=== PATIENT | female | born 1985 | race African-American/Black ===

== ENCOUNTER 2016-09-02 15:33 | Emergency (ER) | payer BC ==
[2016-09-02 15:42] VITALS: BP 115/64
[2016-09-02] MEDS ORDERED: Ibuprofen 800 MG Tab PO ONE (16:07)
--- NOTE | 2016-09-02 16:55 | EDM.PDOC ---
ED HPI GENERAL MEDICAL PROBLEM - General Chief Complaint: Head Injury Stated Complaint: SOMETHING WRONG WITH HEAD IN PAIN NOT HEADACHE Time Seen by Provider: 09/02/16 15:56 Source of Information: Reports: Patient History Limitations: Reports: No Limitations - History of Present Illness INITIAL COMMENTS - FREE TEXT/NARRATIVE: Patient is a 30-year-old female presents ED complaining of right-sided headache. States the headache has been intermittent for the past 4 months and of as of late the headache has been constant over the past 2 weeks. Described as a throbbing/sharp sensation with no precipitating factors. There is no hyperacusis, or photophobia, nausea/vomiting, recent head trauma, or provoking factors. Pain is mild to moderate in nature. She has not tried any over-the- counter pain medications. She has no history of migraines. Denies any numbness/ tingling, vision changes, weakness, fever/chills, or any additional complaints. Left Head Pain Score (Numeric/FACES): 9 - Related Data Allergies Allergy/AdvReac Type Severity Reaction Status Date / Time No Known Allergies Allergy Verified 08/04/13 05:34 Home Meds: Home Meds . [No Known Home Meds] 09/02/16 [History] Past Medical History - Past Health History Medical/Surgical History: Denies Medical/Surgical History Social & Family History - Tobacco Use Smoking Status *Q: Never Smoker Second Hand Smoke Exposure: No - Caffeine Use Caffeine Use: Reports: Coffee, Energy Drinks, Soda, Tea - Alcohol Use Days Per Week of Alcohol Use: 0 - Recreational Drug Use Recreational Drug Use: No ED ROS GENERAL - Review of Systems Review Of Systems: See Below Constitutional: Denies: Fever, Chills, Malaise, Weakness, Decreased Appetite HEENT: Reports: No Symptoms Respiratory: Reports: No Symptoms Cardiovascular: Reports: No Symptoms GI/Abdominal: Reports: No Symptoms Musculoskeletal: Denies: Neck Pain, Back Pain Neurological: Reports: Headache. Denies: Confusion, Dizziness, Numbness, Syncope, Tingling, Difficulty Walking ED EXAM, HEAD INJURY - Physical Exam Exam: See Below Exam Limited By: No Limitations General Appearance: Alert, WD/WN, No Apparent Distress Head: Atraumatic, Normocephalic, Scalp Tenderness (LEft parietal: Worsen with palpation. No deformity, bruising, swelling, rash, or wounds present.) Nexus Criteria: No: Posterior, Midline Cervical Tenderness, Evidence of Intoxication, Altered Level of Consciousness, Focal Neurological Deficit, Painful Distraction Injuries Eyes: Bilateral Eye: EOMI, PERRL Ears: Normal External Exam, Normal Canal, Hearing Grossly Normal, Normal TMs Nose: Normal Inspection, Normal Mucousa, No Blood Throat/Mouth: Normal Inspection, Normal Oropharynx, Normal Voice, No Airway Compromise Neck: Non-Tender, Full Range of Motion, Normal Alignment, Normal Inspection Respiratory: No Respiratory Distress, Lungs Clear, Normal Breath Sounds, No Accessory Muscle Use, Chest Non-Tender Cardiovascular: Normal Peripheral Pulses, Regular Rate, Rhythm GI/Abdominal Exam: Normal Bowel Sounds, Soft, Non-Tender, No Organomegaly, No Distention Back Exam: Normal Inspection, Full Range of Motion. 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 No pronator drift, upper extremity/lower extremity weakness,). No: Facial Droop Skin: Normal Color, Warm/Dry Course - Vital Signs Last Recorded V/S: Last Vital Signs Temp 98.3 F 09/02/16 15:41 Pulse 69 09/02/16 15:41 Resp 20 09/02/16 15:41 BP 115/64 09/02/16 15:41 Pulse Ox 97 09/02/16 15:41 - Orders/Labs/Meds Meds: Medications Discontinued Medications Generic Name Dose Route Start Last Admin Trade Name Margarito PRN Reason Stop Dose Admin Ibuprofen 800 mg 09/02/16 16:07 09/02/16 16:11 Motrin PO 09/02/16 16:08 800 mg ONETIME ONE Administration - Re-Assessments/Exams Free Text/Narrative Re-Assessment/Exam: Patient has not tried any ibuprofen or Tylenol for the headache has been present for almost 4 months. Pain is reproducible with palpation. Mild in nature. She does not appear to be in acute distress. Ordered ibuprofen 800 mg by mouth. Will not obtain imaging at this time. Headache is been going on for months with waxing and waning in intensity. She has not tried any [id number] modalities. Examination did not elicit any concerning findings. 1653 Patient's headache has resolved per nursing. Will discharge patient home with instructions as documented. 09/02/16 17:10 Upon discharge patient states head pain had not improved. Requesting CT of the Head. 09/02/16 18:24 CT of the head impression: No abnormality is appreciated on noncontrast head CT study. Departure - Departure Time of Disposition: 16:53 Disposition: Home, Self-Care 01 Condition: Good Clinical Impression: Head pain Qualifiers: Headache type: unspecified Headache chronicity pattern: unspecified pattern Intractability: not intractable Qualified Code(s): R51 - Headache - Discharge Information Instructions: Migraine Headache, [id number] Referrals: PCP,Evonne [Primary Care Provider] - Nolvia Snyder PA [Physician Mycologist] - Forms: ED Department Discharge Additional Instructions: Unclear cause of headache. This was relieved with taking ibuprofen 800 mg by mouth. Thus recommend taking ibuprofen 600 mg every 6 hours and Tylenol 650 mg every 6 hours in alternating fashion for pain. Push the fluids. Ensure adequate rest. Follow-up with primary care provider this coming week for reevaluation. Return to ED for any new or worsening symptoms.
--- NOTE | 2016-09-02 17:54 | CT ---
Head CT Technique: Multiple axial sections through the brain were obtained. Intravenous contrast was not utilized. Comparison: Previous head CT study of 08/16/12. Findings: Ventricles along with basal cisterns and sulci over the convexities are within normal limits for the patient's age. No abnormal parenchymal densities are seen. No evidence of intracranial hemorrhage. No midline shift or mass effect is seen. Bone window settings were reviewed which shows the visualized sinuses to appear clear. No acute calvarial abnormality is seen. Impression: 1. No abnormality is appreciated on noncontrast head CT study. Diagnostic code #1
== END 2016-09-02 18:30 | disposition home or self-care (01) ==
LOC: JD.ED 15:33
DX: R51 Headache (principal)
CPT/HCPCS: 70450; 99284; A9270; 99283

== ENCOUNTER 2019-03-30 10:16 | Emergency (ER) | payer BC, MEDICAID ==
[2019-03-30 10:42] VITALS: BP 100/35; PULSE 56
[2019-03-30] MEDS ORDERED: Albuterol/Ipratropium 3.0-0.5 MG/3 ML Neb Soln NEB ONE (13:31)
--- NOTE | 2019-03-30 13:33 | EDM.PDOC ---
ED HPI GENERAL MEDICAL PROBLEM - General Chief Complaint: Respiratory Problem Stated Complaint: DIFFICULTY BREATHING Time Seen by Provider: 03/30/19 13:20 Source of Information: Reports: Patient History Limitations: Reports: No Limitations - History of Present Illness INITIAL COMMENTS - FREE TEXT/NARRATIVE: Patient is a 33-year-old female who present with complaints of dyspnea at all times. She states that she has had problems off-and-on for the last couple years with intermittent dyspnea, however for the last 4 days she feels short of breath at all times. She states that it's worse at night awake her from sleep. She denies any cough or wheezing. Dyspnea is worse with any exertion. She denies any chronic lung problems. Has never been diagnosed with asthma or had pulmonary function testing done. Denies fever or chills. - Related Data Allergies Allergy/AdvReac Type Severity Reaction Status Date / Time No Known Allergies Allergy Verified 03/30/19 10:42 Home Meds: Home Meds methylPREDNISolone [Medrol Dose Pack] 4 mg PO ASDIRECTED #1 dospk 03/30/19 [Rx] Past Medical History - Past Health History Medical/Surgical History: Denies Medical/Surgical History Social & Family History - Tobacco Use Smoking Status *Q: Never Smoker - Caffeine Use Caffeine Use: Reports: Coffee - Recreational Drug Use Recreational Drug Use: No ED ROS GENERAL - Review of Systems Review Of Systems: Comprehensive ROS is negative, except as noted in HPI. ED EXAM, GENERAL - Physical Exam Exam: See Below Exam Limited By: No Limitations General Appearance: Alert, WD/WN, No Apparent Distress Respiratory/Chest: No Respiratory Distress, Lungs Clear, Normal Breath Sounds, No Accessory Muscle Use, Chest Non-Tender Cardiovascular: Normal Peripheral Pulses, Regular Rate, Rhythm, No Edema, No Gallop, No JVD, No Murmur, No Rub Neurological: Alert, Oriented, CN II-XII Intact, Normal Cognition, Normal Gait, Normal Reflexes, No Motor/Sensory Deficits Psychiatric: Normal Affect, Normal Mood Skin Exam: Warm, Dry, Intact, Normal Color, No Rash Course - Vital Signs Last Recorded V/S: Last Vital Signs Temp 98.9 F 03/30/19 10:40 Pulse 56 L 03/30/19 10:40 Resp 16 03/30/19 10:40 BP 100/35 L 03/30/19 10:40 Pulse Ox 97 03/30/19 16:43 - Orders/Labs/Meds Labs: Laboratory Tests 03/30/19 Range/Units 14:02 D-Dimer, Quantitative 1.15 H (0.19-0.50) mg/L Meds: Medications Discontinued Medications Generic Name Dose Route Start Last Admin Trade Name Margarito PRN Reason Stop Dose Admin Albuterol 0 gm 03/30/19 16:12 03/30/19 16:43 Proventil Hfa INH 03/30/19 16:13 2 puff Q4H ONE Administration Albuterol/Ipratropium 3 ml 03/30/19 13:31 03/30/19 13:43 Duoneb 3.0-0.5 Mg/3 Ml NEB 03/30/19 13:32 3 ml ONETIME ONE Administration Sodium Chloride 100 mls @ 60 mls/hr 03/30/19 15:30 Normal Saline IV ASDIRECTED PARUL Iopamidol 100 ml 03/30/19 15:28 03/30/19 15:42 Isovue-370 (76%) IVPUSH 03/30/19 15:29 100 ml ONETIME ONE Administration Sodium Chloride 10 ml 03/30/19 15:28 03/30/19 15:42 Saline Flush FLUSH 03/30/19 15:29 10 ml ONETIME ONE Administration - Re-Assessments/Exams Free Text/Narrative Re-Assessment/Exam: patient did verbalize some relief from the shortness of breath after the DuoNeb was given. I have ordered a d-dimer to rule out PE, however, don't feel that this is likely for her She is not tachycardic or hypoxic and she denies chest pain. She is not on control. 03/30/19 15:21 d-dimer did come back elevated at 1.15. I've ordered a CT angiogram of the chest. 03/30/19 16:11 CT angios of the chest was negative. Patient has had no pain swelling or redness in her lower extremities. We will discharge her home with a Medrol Dosepak as well as an albuterol inhaler to be used as needed for shortness of breath. I did recommend that she call to schedule appointment with Dr. Cabrera to have further testing done to either rule in or rule out a diagnosis o asthma. Discharge instructions as noted. Departure - Departure Time of Disposition: 16:13 Disposition: Home, Self-Care 01 Condition: Fair Clinical Impression: Dyspnea Qualifiers: Dyspnea type: shortness of breath Qualified Code(s): R06.02 - Shortness of breath - Discharge Information *PRESCRIPTION DRUG MONITORING PROGRAM REVIEWED*: No *COPY OF PRESCRIPTION DRUG MONITORING REPORT IN PATIENT SEBAS: No Prescriptions: methylPREDNISolone [Medrol Dose Pack] 4 mg PO ASDIRECTED #1 dospk Instructions: Shortness of Breath, Adult, [id number] Referrals: Cris Cabrera MD [Primary Care Provider] - Forms: ED Department Discharge Additional Instructions: You were seen in the emergency department today for chronic shortness of breath with worsening symptoms over the last 4 days. While in the ER, a chest x-ray was done and was normal. CT of your chest was negative for any blood clots in your lungs. You did receive a breathing treatment while in the ER and verbalized that this improved your shortness of breath. I feel that is possible that she may have asthma; however, further testing is needed to officially diagnosis this. You have been prescribed a Medrol Dosepak which is a steroid. This is to decrease the inflammation in your airways. You've also been given an albuterol inhaler which will help to open these airways. You may use this 2 puffs every 4 hours as needed for shortness of breath. I recommend that she call to schedule an appointment with your primary care provider, Dr. Cabrera, to discuss the option of having pulmonary function tests done to check you for asthma. If you should experience any new or worsening symptoms, please do not hesitate to return to the emergency department. Sepsis Event Note - Evaluation Sepsis Screening Result: No Definite Risk - Focused Exam Date Exam was Performed: 04/01/19 Time Exam was Performed: 14:55
[2019-03-30] MEDS ORDERED: Sodium Chloride 0.9% 10 ML Syringe FLUSH ONE (15:28)
[2019-03-30] MEDS ORDERED: Iopamidol 755 Mg/ML 100 ML Bottle IVPUSH ONE (15:28)
[2019-03-30] MEDS ORDERED: Sodium Chloride 0.9% 100 ML IV SCH (15:30)
--- NOTE | 2019-03-30 15:52 | CR ---
Chest: Two views of the chest were obtained. Comparison: No prior chest imaging. Heart size and mediastinum are normal. Lungs are clear. Bony structures are unremarkable. Pressure: 1. Nothing acute is seen on two-view chest x-ray. Diagnostic code #1 This report was dictated in [place] Standard Time
--- NOTE | 2019-03-30 16:05 | CT ---
CT chest Technique: Multiple axial sections were obtained from above the lung apices inferiorly through the lung bases. Intravenous contrast was utilized. Study has been performed as a pulmonary angiogram protocol. Comparison: No prior chest CT is available, previous chest x-ray performed earlier on the same day. Findings: Pulmonary arteries are well opacified. No filling defects are seen to indicate pulmonary embolism. Normal thymic tissue appears to be present within the superior mediastinum. No adenopathy is seen within the mediastinum. No hilar adenopathy is seen. No pericardial effusion is seen. Visualized lung are clear with no acute parenchymal change. Visualized upper abdominal structures shows no discrete abnormality. Bone window settings were reviewed which shows no acute osseous finding. Impression: 1. No findings of pulmonary embolism. 2. Nothing acute is appreciated on CT study of the chest. Diagnostic code #1 This report was dictated in [place] Standard Time
[2019-03-30] MEDS ORDERED: Albuterol 6.7 GM Inhaler INH ONE (16:12)
== END 2019-03-30 16:40 | disposition home or self-care (01) ==
LOC: JD.ED 10:16
DX: R06.02 Shortness of breath (principal)
CPT/HCPCS: 36415; 71046; 71275; 85379; 94640; 99285; A9270; Q9967; 99283; J7620-GY

== ENCOUNTER 2019-05-27 21:38 | Emergency (ER) | payer MEDICAID ==
[2019-05-27 21:47] VITALS: BP 123/73; PULSE 86
[2019-05-27] MEDS ORDERED: Ondansetron 4 MG Tab.DIS PO ONE (21:57)
[2019-05-27] MEDS ORDERED: Ketorolac 60 MG/2 ML SDV IM ONE (21:57)
--- NOTE | 2019-05-27 22:05 | EDM.PDOC ---
ED HPI GENERAL MEDICAL PROBLEM - General Chief Complaint: Skin Complaint Stated Complaint: LUMP IN RIGHT ARM PIT Time Seen by Provider: 05/27/19 21:46 Source of Information: Reports: Patient, RN Notes Reviewed History Limitations: Reports: No Limitations - History of Present Illness INITIAL COMMENTS - FREE TEXT/NARRATIVE: Patient is a 33-year-old female who presents to the ED for the evaluation of a lump in her right armpit. Patient states that around 2 days ago this developed , it is tender, and about the size of a small grape. Patient notes that she has been feeling generally rundown, slightly nauseous, and started with a sore throat today as well. She would rate that the pain in her armpit and the pain in her throat at around an 8 out of 10. She is not taking any sort of over-the- counter medications to help symptoms. Patient denies any like sick contacts. Patient states that her recently returned from [place]. Patient's not had any fever at home, she has not had any shortness of breath, she has not had any cough, she denies any chest pain. Patient notes no lumps in her breast tissue, nor does she notice any changes in her breast tissue otherwise. The lump is not reddened or irritated looking. Throat Pain Score (Numeric/FACES): 8 Right Axillary Pain Score (Numeric/FACES): 8 - Related Data Allergies Allergy/AdvReac Type Severity Reaction Status Date / Time No Known Allergies Allergy Verified 03/30/19 10:42 Home Meds: Home Meds . [No Known Home Meds] 05/27/19 [History] Past Medical History - Past Health History Medical/Surgical History: Denies Medical/Surgical History Social & Family History - Caffeine Use Caffeine Use: Reports: Coffee ED ROS GENERAL - Review of Systems Review Of Systems: See Below Constitutional: Reports: Malaise, Fatigue. Denies: Fever, Chills HEENT: Reports: Throat Pain. Denies: Throat Swelling Respiratory: Denies: Shortness of Breath, Cough Cardiovascular: Denies: Chest Pain GI/Abdominal: Reports: Nausea. Denies: Abdominal Pain, Constipation, Diarrhea, Vomiting Skin: Reports: Lumps (single discrete lump in R axilla) ED EXAM, SKIN/RASH Exam: See Below Exam Limited By: No Limitations General Appearance: Alert, WD/WN, No Apparent Distress Eye Exam: Bilateral Eye: EOMI, Normal Inspection, PERRL Ears: Normal External Exam, Normal Canal, Hearing Grossly Normal, Normal TMs Nose: Normal Inspection, Normal Mucosa, No Blood Throat/Mouth: Normal Inspection, Normal Lips, Normal Teeth, Normal Gums, Other ( oropharynx slightly erythematous, no exudates noted) Head: Atraumatic, Normocephalic Neck: Normal Inspection, Supple, Non-Tender, Full Range of Motion. No: Lymphadenopathy (L), Lymphadenopathy (R) Respiratory/Chest: No Respiratory Distress, Lungs Clear, Normal Breath Sounds, No Accessory Muscle Use, Chest Non-Tender Cardiovascular: Normal Peripheral Pulses, Regular Rate, Rhythm, No Murmur Peripheral Pulses: 3+: Radial (L), Radial (R) GI/Abdominal: Normal Bowel Sounds, Soft, Non-Tender, No Distention, No Mass Neurological: Alert, Oriented, Normal Cognition, No Motor/Sensory Deficits Psychiatric: Normal Affect, Normal Mood Skin: Warm, Dry, Intact, Normal Color, No Rash, Other (single discrete lump, roughly grape size in R axilla, this is tender, rubbery, movable, not erythematous or fluctuant) Location, Skin: Axillary (Right axilla) Lymphatic: Adenopathy (suspected single enlarged lymph node in R axilla) Course - Vital Signs Last Recorded V/S: Last Vital Signs Temp 97.6 F 05/27/19 21:46 Pulse 86 05/27/19 21:46 Resp 20 05/27/19 21:46 BP 123/73 05/27/19 21:46 Pulse Ox 100 05/27/19 21:46 - Orders/Labs/Meds Orders: Active Orders 24 hr Category Date Time Status CULTURE STREP A CONFIRMATION [RM] Stat Lab 05/27/19 22:00 Results STREP SCRN A RAPID W CULT CONF [RM] Stat Lab 05/27/19 22:00 Received Labs: Laboratory Tests 05/27/19 05/27/19 05/27/19 Range/Units 22:10 22:10 22:10 WBC 6.06 (3.98-10.04) K/mm3 RBC 4.14 (3.98-5.22) M/mm3 Hgb 12.4 (11.2-15.7) gm/dl Hct 37.8 (34.1-44.9) % MCV 91.3 D (79.4-94.8) fl MCH 30.0 (25.6-32.2) pg MCHC 32.8 (32.2-35.5) g/dl RDW Std Deviation 39.8 (36.4-46.3) fL Plt Count 234 (182-369) K/mm3 MPV 11.8 (9.4-12.3) fl Neutrophils % (Manual) 69 H (40-60) % Band Neutrophils % 0 (0-10) % Lymphocytes % (Manual) 29 (20-40) % Atypical Lymphs % 0 % Monocytes % (Manual) 2 (2-10) % Eosinophils % (Manual) 0 L (0.7-5.8) % Basophils % (Manual) 0 L (0.1-1.2) Platelet Estimate Adequate RBC Morph Comment Normal Sodium 142 (136-145) mEq/L Potassium 3.5 (3.5-5.1) mEq/L Chloride 105 (98-107) mEq/L Carbon Dioxide 26 (21-32) mEq/L Anion Gap 14.5 (5-15) BUN 11 (7-18) mg/dL Creatinine 0.8 (0.55-1.02) mg/dL Est Cr Clr Drug Dosing 84.29 mL/min Estimated GFR (MDRD) > 60 (>60) mL/min BUN/Creatinine Ratio 13.8 L (14-18) Glucose 143 H (74-106) mg/dL Calcium 9.0 (8.5-10.1) mg/dL Total Bilirubin 0.3 (0.2-1.0) mg/dL AST 14 L (15-37) U/L ALT 26 (14-59) U/L Alkaline Phosphatase 48 (46-116) U/L Total Protein 7.0 (6.4-8.2) g/dl Albumin 3.7 (3.4-5.0) g/dl Globulin 3.3 gm/dL Albumin/Globulin Ratio 1.1 (1-2) Monoscreen Negative (NEGATIVE) Meds: Medications Discontinued Medications Generic Name Dose Route Start Last Admin Trade Name Freq PRN Reason Stop Dose Admin Ketorolac Tromethamine 60 mg 05/27/19 21:57 05/27/19 22:24 Toradol IM 05/27/19 21:58 60 mg ONETIME ONE Administration Ondansetron HCl 4 mg 05/27/19 21:57 05/27/19 22:23 Zofran Odt PO 05/27/19 21:58 4 mg ONETIME ONE Administration - Re-Assessments/Exams Free Text/Narrative Re-Assessment/Exam: 05/27/19 22:07 Patient presents to the ED for evaluation of her lump in her armpit, and a sore throat. Will swab the patient for strep, get a CBC, CMP, and a Monospot. Will give Toradol and Zofran for initial management. Patient's clinical exam is suspicious for mono as I do believe the lump in her axilla is an enlarged lymph node. 05/27/19 23:12 Monospot is negative, CBC is within normal limits, no atypical lymphs, metabolic panel demonstrates no increase in liver enzymes, strep is negative at this time, but will be sent for culture for confirmation. I do believe that the patient is suffering from a viral illness. I will discharge patient home and have her follow-up in clinic to make sure that the lymph node is getting better as expected, and have her increase oral fluid intake, and other general recommendations. Departure - Departure Time of Disposition: 23:14 Disposition: Home, Self-Care 01 Condition: Fair Clinical Impression: Enlarged lymph nodes in armpit Pharyngitis Qualifiers: Pharyngitis/tonsillitis etiology: unspecified etiology Qualified Code(s): J02.9 - Acute pharyngitis, unspecified - Discharge Information *PRESCRIPTION DRUG MONITORING PROGRAM REVIEWED*: No *COPY OF PRESCRIPTION DRUG MONITORING REPORT IN PATIENT SEBAS: No Instructions: Sore Throat, [id number], Lymphadenopathy Referrals: Cris Cabrera MD [Primary Care Provider] - Forms: ED Department Discharge Additional Instructions: You were evaluated in the ER today regarding your lump in your right armpit. This is most likely a solitary enlarged lymph node, there is no further emergent management warranted for today's visit. You had some laboratory evaluation to include a CBC, CMP, strep screen and a mononucleosis screen. The mononucleosis screen was negative, the strep screen was negative however this will be sent for culture for confirmation you will be called and made notified if you should need antibiotics for a positive culture. Your other blood work was within normal limits. It is likely that you are suffering from a viral illness nonetheless, recommend that you increase your oral fluid intake Tylenol or ibuprofen every 6 hours for further pain relief. Recommend that you call our clinic, and obtain appointment with your primary care provider within the next week for reevaluation of the lymph node in your right armpit and for a possible breast exam to rule out any sort of other origin of the enlarged lymph node. As with any illness, please monitor your symptoms, it is recommended that you stay home, try to practice good hand hygiene, cover your mouth when you cough, try to limit touching your face as much as possible. It is very likely that you will be feeling better in a few days time. As you do not have a fever at today's visit, there is low suspicion for coronavirus at today's visit, so you were not screened for this at this time. Sepsis Event Note - Evaluation Sepsis Screening Result: No Definite Risk - Focused Exam Vital Signs: Vital Signs Temp Pulse Resp BP Pulse Ox 05/27/19 21:46 97.6 F 86 20 123/73 100 Date Exam was Performed: 05/27/19 Time Exam was Performed: 23:13 - My Orders Last 24 Hours: My Active Orders 05/27/19 22:00 CULTURE STREP A CONFIRMATION [RM] Stat STREP SCRN A RAPID W CULT CONF [RM] Stat - Assessment/Plan Last 24 Hours: My Active Orders 05/27/19 22:00 CULTURE STREP A CONFIRMATION [RM] Stat STREP SCRN A RAPID W CULT CONF [RM] Stat
== END 2019-05-27 23:35 | disposition home or self-care (01) ==
LOC: JD.ED 21:38
DX: R22.31 Localized swelling, mass and lump, right upper limb (principal); J02.9 Acute pharyngitis, unspecified
CPT/HCPCS: 36415; 80053; 85007; 85027; 86308; 87081; 87430; 96372; 99283; A9270; J1885

== ENCOUNTER 2019-07-05 03:45 | Emergency (ER) | payer MEDICAID ==
[2019-07-05 04:01] VITALS: BP 123/78; PULSE 99
--- NOTE | 2019-07-05 04:39 | EDM.PDOC ---
ED HPI GENERAL MEDICAL PROBLEM - General Chief Complaint: Cardiovascular Problem Stated Complaint: FEVER/SHAKING/HEART BEATING FAST Time Seen by Provider: 07/05/19 04:14 Source of Information: Reports: Patient History Limitations: Reports: Other (Questionable reliability of subjective presentation. History varies with retelling. Multiple somatic complaints. Poorly focused history.) - History of Present Illness INITIAL COMMENTS - FREE TEXT/NARRATIVE: TRIAGE NOTE -- Pt states starting yesterday afternoon she started to develop palpatations and feeling hot. Pt states starting early this morning she developed SOB with along with these symptoms that woke her up from sleep. Pt stattes she was tested for COVID19 one month ago and it was negative at that time. [ End ] On my exam the patient says she has had shortness of breath on and off for a year. She says she has had no evaluation for this until recently. Record reflects pulmonary function testing and Holter monitor in past month. Head CT prior to that for vague symptoms. CTA chest in March for respiratory complaint and elevated d-dimer. Paucity of abnormal findings. Pulmonary function test did suggest reactive airway. Does not offer a history suggestive of febrile illness. Says she has GERD. Vague complaint of abdominal pain. - Related Data Allergies Allergy/AdvReac Type Severity Reaction Status Date / Time No Known Allergies Allergy Verified 07/05/19 04:01 Home Meds: Home Meds . [No Known Home Meds] 05/27/19 [History] Past Medical History - Past Health History Medical/Surgical History: Denies Medical/Surgical History Social & Family History - Tobacco Use Smoking Status *Q: Never Smoker - Caffeine Use Caffeine Use: Reports: None - Recreational Drug Use Recreational Drug Use: No ED ROS GENERAL - Review of Systems Review Of Systems: Comprehensive ROS is negative, except as noted in HPI. ED EXAM, GENERAL - Physical Exam Exam: See Below Exam Limited By: No Limitations General Appearance: Alert, WD/WN, No Apparent Distress Eye Exam: Bilateral Eye: EOMI, PERRL Ears: Normal External Exam Nose: Normal Inspection Throat/Mouth: Normal Inspection Head: Atraumatic, Normocephalic Neck: Normal Inspection, Supple Respiratory/Chest: No Respiratory Distress, Lungs Clear, Normal Breath Sounds, No Accessory Muscle Use Cardiovascular: Regular Rate, Rhythm (Initially with mild tachycardia heart rate 99) GI/Abdominal: Soft, Non-Tender Back Exam: Normal Inspection Extremities: Normal Inspection, Non-Tender Neurological: Alert, No Motor/Sensory Deficits Psychiatric: Flat Affect (A bit withdrawn) Skin Exam: Warm, Dry Lymphatic: No Adenopathy (No finding of axillary lymph node suspected recently.) Course - Vital Signs Last Recorded V/S: Last Vital Signs Temp 36.4 C 07/05/19 03:58 Pulse 99 07/05/19 03:58 Resp 18 07/05/19 03:58 BP 123/78 07/05/19 03:58 Pulse Ox 100 07/05/19 03:58 - Orders/Labs/Meds Orders: Active Orders 24 hr Category Date Time Status EKG Documentation Completion [RC] STAT Care 07/05/19 04:28 Active Chest 1V Frontal [CR] Stat Exams 07/05/19 04:28 Taken CULTURE URINE [RM] Stat Lab 07/05/19 05:29 Received Labs: Laboratory Tests 07/05/19 07/05/19 07/05/19 Range/Units 04:40 04:40 04:40 WBC 7.28 (3.98-10.04) K/mm3 RBC 4.58 (3.98-5.22) M/mm3 Hgb 13.7 (11.2-15.7) gm/dl Hct 40.4 (34.1-44.9) % MCV 88.2 (79.4-94.8) fl MCH 29.9 (25.6-32.2) pg MCHC 33.9 (32.2-35.5) g/dl RDW Std Deviation 37.7 (36.4-46.3) fL Plt Count 242 (182-369) K/mm3 MPV 11.2 (9.4-12.3) fl Neutrophils % (Manual) 66 H (40-60) % Band Neutrophils % 0 (0-10) % Lymphocytes % (Manual) 30 (20-40) % Atypical Lymphs % 0 % Monocytes % (Manual) 3 (2-10) % Eosinophils % (Manual) 0 L (0.7-5.8) % Basophils % (Manual) 1 (0.1-1.2) Platelet Estimate Adequate RBC Morph Comment Normal PT 11.4 (9.7-12.0) SECONDS INR 1.05 D-Dimer, Quantitative (0.19-0.50) mg/L Sodium 142 (136-145) mEq/L Potassium 3.8 (3.5-5.1) mEq/L Chloride 104 (98-107) mEq/L Carbon Dioxide 26 (21-32) mEq/L Anion Gap 15.8 H (5-15) BUN 11 (7-18) mg/dL Creatinine 0.7 (0.55-1.02) mg/dL Est Cr Clr Drug Dosing 92.10 mL/min Estimated GFR (MDRD) > 60 (>60) mL/min BUN/Creatinine Ratio 15.7 (14-18) Glucose 107 H (74-106) mg/dL Calcium 9.5 (8.5-10.1) mg/dL Ferritin (8-252) ng/ml Total Bilirubin 0.5 (0.2-1.0) mg/dL AST 18 (15-37) U/L ALT 23 (14-59) U/L Alkaline Phosphatase 49 (46-116) U/L Lactate Dehydrogenase 164 (81-234) U/L Troponin I < 0.017 (0.00-0.056) ng/mL C-Reactive Protein <0.2 (<1.0) mg/dL Total Protein 8.0 (6.4-8.2) g/dl Albumin 4.2 (3.4-5.0) g/dl Globulin 3.8 gm/dL Albumin/Globulin Ratio 1.1 (1-2) Urine Color (Yellow) Urine Appearance (Clear) Urine pH (5.0-8.0) Ur Specific [place] (1.005-1.030) Urine Protein (Negative) Urine Glucose (UA) (Negative) Urine Ketones (Negative) Urine Occult Blood (Negative) Urine Nitrite (Negative) Urine Bilirubin (Negative) Urine Urobilinogen (0.2-1.0) Ur Leukocyte Esterase (Negative) Urine RBC (0-5) /hpf Urine WBC (0-5) /hpf Ur Squamous Epith Cells (0-5) /hpf Urine Bacteria (FEW) /hpf Urine Mucus (FEW) /hpf Urine HCG, Qual (NEGATIVE) Urine Opiates Screen (TWKBOA=290) Ur Buprenorphine Scrn (CUTOFF=10) Ur Oxycodone Screen (CDD3PX=331) Urine Methadone Screen (LQJCML=735) Ur Propoxyphene Screen (KVHQDY=248) Ur Barbiturates Screen (QVJWLR=547) Ur Tricyclics Screen (ZYOLRP=956) Ur Phencyclidine Scrn (CUTOFF=25) Ur Amphetamine Screen (CPHYKR=031) U Methamphetamines Scrn (ORIXWI=180) U Benzodiazepines Scrn (KOQEFD=556) U Cocaine Metab Screen (WWVWAH=758) U Marijuana (THC) Screen (CUTOFF=50) 07/05/19 07/05/19 07/05/19 Range/Units 04:40 04:40 05:29 WBC (3.98-10.04) K/mm3 RBC (3.98-5.22) M/mm3 Hgb (11.2-15.7) gm/dl Hct (34.1-44.9) % MCV (79.4-94.8) fl MCH (25.6-32.2) pg MCHC (32.2-35.5) g/dl RDW Std Deviation (36.4-46.3) fL Plt Count (182-369) K/mm3 MPV (9.4-12.3) fl Neutrophils % (Manual) (40-60) % Band Neutrophils % (0-10) % Lymphocytes % (Manual) (20-40) % Atypical Lymphs % % Monocytes % (Manual) (2-10) % Eosinophils % (Manual) (0.7-5.8) % Basophils % (Manual) (0.1-1.2) Platelet Estimate RBC Morph Comment PT (9.7-12.0) SECONDS INR D-Dimer, Quantitative 0.39 (0.19-0.50) mg/L Sodium (136-145) mEq/L Potassium (3.5-5.1) mEq/L Chloride (98-107) mEq/L Carbon Dioxide (21-32) mEq/L Anion Gap (5-15) BUN (7-18) mg/dL Creatinine (0.55-1.02) mg/dL Est Cr Clr Drug Dosing mL/min Estimated GFR (MDRD) (>60) mL/min BUN/Creatinine Ratio (14-18) Glucose (74-106) mg/dL Calcium (8.5-10.1) mg/dL Ferritin 54 (8-252) ng/ml Total Bilirubin (0.2-1.0) mg/dL AST (15-37) U/L ALT (14-59) U/L Alkaline Phosphatase (46-116) U/L Lactate Dehydrogenase (81-234) U/L Troponin I (0.00-0.056) ng/mL C-Reactive Protein (<1.0) mg/dL Total Protein (6.4-8.2) g/dl Albumin (3.4-5.0) g/dl Globulin gm/dL Albumin/Globulin Ratio (1-2) Urine Color Yellow (Yellow) Urine Appearance Clear (Clear) Urine pH 6.5 (5.0-8.0) Ur Specific [place] 1.020 (1.005-1.030) Urine Protein Negative (Negative) Urine Glucose (UA) Negative (Negative) Urine Ketones Negative (Negative) Urine Occult Blood Negative (Negative) Urine Nitrite Negative (Negative) Urine Bilirubin Negative (Negative) Urine Urobilinogen 0.2 (0.2-1.0) Ur Leukocyte Esterase 1+ H (Negative) Urine RBC 0-5 (0-5) /hpf Urine WBC 5-10 H (0-5) /hpf Ur Squamous Epith Cells 10-20 H (0-5) /hpf Urine Bacteria Few (FEW) /hpf Urine Mucus Few (FEW) /hpf Urine HCG, Qual (NEGATIVE) Urine Opiates Screen (OXVKQZ=905) Ur Buprenorphine Scrn (CUTOFF=10) Ur Oxycodone Screen (UIV0AL=480) Urine Methadone Screen (RAAVJO=797) Ur Propoxyphene Screen (AFLTGK=660) Ur Barbiturates Screen (XQHAWX=845) Ur Tricyclics Screen (SFWLLO=070) Ur Phencyclidine Scrn (CUTOFF=25) Ur Amphetamine Screen (COULLG=908) U Methamphetamines Scrn (JQSPWU=507) U Benzodiazepines Scrn (OVREPL=507) U Cocaine Metab Screen (ZYGHCQ=228) U Marijuana (THC) Screen (CUTOFF=50) 07/05/19 07/05/19 Range/Units 05:29 05:29 WBC (3.98-10.04) K/mm3 RBC (3.98-5.22) M/mm3 Hgb (11.2-15.7) gm/dl Hct (34.1-44.9) % MCV (79.4-94.8) fl MCH (25.6-32.2) pg MCHC (32.2-35.5) g/dl RDW Std Deviation (36.4-46.3) fL Plt Count (182-369) K/mm3 MPV (9.4-12.3) fl Neutrophils % (Manual) (40-60) % Band Neutrophils % (0-10) % Lymphocytes % (Manual) (20-40) % Atypical Lymphs % % Monocytes % (Manual) (2-10) % Eosinophils % (Manual) (0.7-5.8) % Basophils % (Manual) (0.1-1.2) Platelet Estimate RBC Morph Comment PT (9.7-12.0) SECONDS INR D-Dimer, Quantitative (0.19-0.50) mg/L Sodium (136-145) mEq/L Potassium (3.5-5.1) mEq/L Chloride (98-107) mEq/L Carbon Dioxide (21-32) mEq/L Anion Gap (5-15) BUN (7-18) mg/dL Creatinine (0.55-1.02) mg/dL Est Cr Clr Drug Dosing mL/min Estimated GFR (MDRD) (>60) mL/min BUN/Creatinine Ratio (14-18) Glucose (74-106) mg/dL Calcium (8.5-10.1) mg/dL Ferritin (8-252) ng/ml Total Bilirubin (0.2-1.0) mg/dL AST (15-37) U/L ALT (14-59) U/L Alkaline Phosphatase (46-116) U/L Lactate Dehydrogenase (81-234) U/L Troponin I (0.00-0.056) ng/mL C-Reactive Protein (<1.0) mg/dL Total Protein (6.4-8.2) g/dl Albumin (3.4-5.0) g/dl Globulin gm/dL Albumin/Globulin Ratio (1-2) Urine Color (Yellow) Urine Appearance (Clear) Urine pH (5.0-8.0) Ur Specific [place] (1.005-1.030) Urine Protein (Negative) Urine Glucose (UA) (Negative) Urine Ketones (Negative) Urine Occult Blood (Negative) Urine Nitrite (Negative) Urine Bilirubin (Negative) Urine Urobilinogen (0.2-1.0) Ur Leukocyte Esterase (Negative) Urine RBC (0-5) /hpf Urine WBC (0-5) /hpf Ur Squamous Epith Cells (0-5) /hpf Urine Bacteria (FEW) /hpf Urine Mucus (FEW) /hpf Urine HCG, Qual Negative (NEGATIVE) Urine Opiates Screen Negative (VIWAUA=200) Ur Buprenorphine Scrn Negative (CUTOFF=10) Ur Oxycodone Screen Negative (ORY3WR=848) Urine Methadone Screen Negative (NGPSHO=432) Ur Propoxyphene Screen Negative (HCGNZQ=753) Ur Barbiturates Screen Negative (QKOTBS=736) Ur Tricyclics Screen Negative (FJBRVO=267) Ur Phencyclidine Scrn Negative (CUTOFF=25) Ur Amphetamine Screen Negative (KQYCYH=667) U Methamphetamines Scrn Negative (NORZGQ=050) U Benzodiazepines Scrn Negative (OGIAXS=164) U Cocaine Metab Screen Negative (LYLAPZ=905) U Marijuana (THC) Screen Negative (CUTOFF=50) Meds: Medications Discontinued Medications Generic Name Dose Route Start Last Admin Trade Name Freq PRN Reason Stop Dose Admin Al Hydroxide/Mg Hydroxide 30 0 ml 07/05/19 04:42 07/05/19 04:49 ml/ Lidocaine HCl 15 ml PO 07/05/19 04:43 45 ml ONETIME ONE Administration - Re-Assessments/Exams Free Text/Narrative Re-Assessment/Exam: 07/05/19 05:16 Patient was given a GI cocktail and she says it made her feel better. She has been taking Nexium for about 1 week and says she has not had any improvement in symptoms from this medication. 07/05/19 06:07 The patient has had a fairly exhaustive evaluation again without any salient abnormals. She does have 5-10 WBCs per high-power field in her urine but no urinary symptoms at all. It is reasonable to await culture or symptoms to treat with antibiotic. Primary physician can deal with this if need be. In trying to wrap up the encounter with the patient she wants to know why her pulse seems irregular. She was reminded that her recent Holter monitor did not demonstrate any problematic rhythms. She also wants to know what she can do about her symptoms of heartburn or GERD. She is reminded that she is on therapeutic dose of Nexium and should continue to take it. See further recommendations for the patient below. Departure - Departure Time of Disposition: 06:10 Disposition: Home, Self-Care 01 Condition: Good Clinical Impression: Multiple somatic complaints, History of palpitations, Peptic ulcer symptoms, History of dyspnea Referrals: Cris Cabrera MD [Primary Care Provider] - Forms: ED Department Discharge Additional Instructions: You have been evaluated for palpitations, GERD symptoms, and your chronic respiratory symptoms. There are no significant abnormal findings at this visit and it is safe to go home. Call your primary doctor on Saturday and arrange close follow-up. You have a slightly abnormal urinalysis but I do not think you have a urinary tract infection. However your primary can check your urine culture which will be available on Saturday to see if any treatment might be required. Because of your heart palpitations it might be reasonable to see a sampler tester and your primary can refer you. It is noted that your recent heart monitor did not show any dangerous rhythms. Because of your symptoms of possible GERD you should continue to take your stomach acid pill (Nexium). If you continue to have these symptoms your primary may wish to refer you to gastroenterology for additional evaluation. Please feel free to return to the emergency department at anytime for any troubling symptoms at all. Sepsis Event Note - Evaluation Sepsis Screening Result: No Definite Risk - Focused Exam Vital Signs: Vital Signs Temp Pulse Resp BP Pulse Ox 07/05/19 03:58 36.4 C 99 18 123/78 100 Date Exam was Performed: 07/05/19 Time Exam was Performed: 06:07 - My Orders Last 24 Hours: My Active Orders 07/05/19 04:28 EKG Documentation Completion [RC] STAT Chest 1V Frontal [CR] Stat 07/05/19 05:29 CULTURE URINE [RM] Stat - Assessment/Plan Last 24 Hours: My Active Orders 07/05/19 04:28 EKG Documentation Completion [RC] STAT Chest 1V Frontal [CR] Stat 07/05/19 05:29 CULTURE URINE [RM] Stat
[2019-07-05] MEDS ORDERED: Alum Hydrox/Mag Hydrox/Simeth 30 ML, Lidocaine 2% 15 ML PO ONE ×2 (04:42)
--- NOTE | 2019-07-05 11:12 | CR ---
Chest: Portable view of the chest was obtained. Comparison: Prior chest x-ray of 03/30/19. Heart size and mediastinum are normal. Lungs are clear with no acute parenchymal change. Bony structures are grossly intact. Impression: 1. Nothing acute is seen on portable chest x-ray. Diagnostic code #1 This report was dictated in MDT
== END 2019-07-05 06:25 | disposition home or self-care (01) ==
LOC: JD.ED 03:45
DX: R00.2 Palpitations (principal); R06.02 Shortness of breath
CPT/HCPCS: 36415; 71045; 80053; 80306; 81001; 81025; 82728; 83615; 84484; 85007; 85027; 85379; 85610; 86140; 87086; 93005; 99285; A9270; 93010; 99283

== ENCOUNTER 2019-08-06 12:06 | Day surgery (SDC) | payer MEDICAID ==
--- NOTE | 2019-08-05 08:35 | PCM.PREANE ---
Preanesthetic Assessment - Procedure Proposed Procedure: EGD - Anesthesia/Transfusion/Family Hx Anesthesia History: Prior Anesthesia Without Reaction Family History of Anesthesia Reaction: No Transfusion History: No Prior Transfusion(s) Intubation History: Unknown - Review of Systems General: No Symptoms Pulmonary: No Symptoms (Reactive airway disease: last used albuterol:Saturday), Shortness of Breath Cardiovascular: Chest Pain (chest tightness/epigastric pain noted and patient states is common for her.), Palpitations, Dyspnea on Exertion, Lightheadedness ( positional changes) Gastrointestinal: No Symptoms (GERD) Neurological: No Symptoms - Physical Assessment NPO Status Date: 08/05/19 NPO Status Time: 20:00 Vital Signs: HR:76 Sat:100% B/P:109/61 Resp:20 Temp:99.4 Height: 1.55 m Weight: 56 kg ASA Class: 2 Mental Status: Alert & Oriented x3 Airway Class: Mallampati = 2 Dentition: Reports: Normal Dentition (braces and retainers taken out), Caries Thyro-Mental Finger Breadths: 3 Mouth Opening Finger Breadths: 3 ROM/Head Extension: Full Lungs: Clear to Auscultation, Normal Respiratory Effort Cardiovascular: Regular Rate, Regular Rhythm, No Murmurs, Murmurs - Lab Values: All labs reviewed and noted and within acceptable ranges to proceed with scheduled procedure. - Imaging/EKG Impressions: EKG: SR rate=80 Echocardiogram: EF= 60-65% PFT's: minimal obstructive airway disease, responsive to bronchodilator. - Allergies Allergies/Adverse Reactions: Allergies Allergy/AdvReac Type Severity Reaction Status Date / Time No Known Allergies Allergy Verified 08/05/19 16:17 - Anesthesia Plan Pre-Op Medication Ordered: None - Acknowledgements Anesthesia Type Planned: MAC Pt an Appropriate Candidate for the Planned Anesthesia: Yes Alternatives and Risks of Anesthesia Discussed w Pt/Guardian: Yes Pt/Guardian Understands and Agrees with Anesthesia Plan: Yes PreAnesthesia Questionnaire - Past Health History Medical/Surgical History: Denies Medical/Surgical History - HOME MEDS Home Medications: Home Meds Albuterol [Proair HFA] 2 puff INH Q4H PRN 08/05/19 [History] Multivitamin [Poly-Vitamin] 1 tab PO DAILY 08/05/19 [History] Pantoprazole Sodium [Protonix] 40 mg PO DAILY 08/05/19 [History] Sucralfate 1 gm PO QID 08/05/19 [History] - CURRENT (IN HOUSE) MEDS Current Meds: Current Medications Lactated Ringer's (Ringers, Lactated) 1,000 mls @ 125 mls/hr IV ASDIRECTED PARUL Stop: 08/06/19 23:00 Lidocaine/Sodium Bicarbonate (Buffered Lidocaine 1% In Ns 8.4%) 0.25 ml IDERM ONETIME PRN PRN Reason: Prior to IV Start Stop: 08/06/19 18:00 Sodium Chloride (Saline Flush) 10 ml FLUSH ASDIRECTED PRN PRN Reason: Keep Vein Open Stop: 08/06/19 18:00 Discontinued Medications Lactated Ringer's (Ringers, Lactated) 1,000 mls @ 125 mls/hr IV ASDIRECTED [facility] Stop: 07/23/19 23:00 Lidocaine/Sodium Bicarbonate (Buffered Lidocaine 1% In Ns 8.4%) 0.25 ml IDERM ONETIME PRN PRN Reason: Prior to IV Start Stop: 07/23/19 23:00 Sodium Chloride (Saline Flush) 10 ml FLUSH ASDIRECTED PRN PRN Reason: Keep Vein Open Stop: 07/23/19 23:00
[~2019-08-06 12:06] MED LIST: Albuterol 0.083% 2.5 MG/3 ML Neb Soln NEB PRN; Lactated Ringers 1,000 ML IV SCH; Lidocaine 1%/Sod Bicarbonate in NS 8.4% 1 ML Syringe IDERM PRN; Sodium Chloride 0.9% 10 ML Syringe FLUSH PRN
[2019-08-06] MEDS ORDERED: Lidocaine 1% 4 ML ONE (12:24)
[2019-08-06] MEDS ORDERED: fentaNYL 100 MCG/2 ML SDV ONE (12:24)
[2019-08-06] MEDS ORDERED: Propofol 200 MG/20 ML SDV ONE ×3 (12:24→13:30)
[2019-08-06] MEDS ORDERED: Midazolam 1 MG/ML 2 ML SDV ONE (12:25)
[2019-08-06 13:43] VITALS: BP 104/55
--- NOTE | 2019-08-06 13:43 | PCM.PRNOTE ---
- Free Text/Narrative Note: Date: 08/06/2019 Procedure: diagnostic upper endoscopy Indication: atypical chest pain Findings: no abnormal findings Detailed Report: The patient was taken to the endoscopy suite and placed in left lateral decubitus position. Time out was performed and monitored anesthesia care initiated. A bite block was placed, and the endoscope was inserted into the mouth. The scope was advanced with ease to the second portion of the duodenum. The mucosa appeared normal; a biopsy was taken with forceps from the duodenal bulb. The pylorus and antrum appeared normal, and a sample biopsy was obtained. The incisura and body of the stomach appeared normal. On retroflexion, there was no evidence for pathology within the fundus and no evidence of hiatal hernia. The distal esophagus appeared normal without signs of inflammation. A sample biopsy of the distal esophagus was obtained. The remainder of the esophagus appeared normal. Air was suctioned from the stomach prior to withdrawal of the scope. The patient tolerated the procedure well. Benton Lara MD General Surgery
--- NOTE | 2019-08-06 13:43 | PCM48HPAN ---
Post Anesthesia Note - EVALUATION WITHIN 48HRS OF ANESTHETIC Vital Signs in Normal Range: Yes Patient Participated in Evaluation: Yes Respiratory Function Stable: Yes Airway Patent: Yes Cardiovascular Function Stable: Yes Hydration Status Stable: Yes Pain Control Satisfactory: Yes Nausea and Vomiting Control Satisfactory: Yes Mental Status Recovered: Yes Vital Signs: Last Vital Signs Temp 99.4 F 08/06/19 12:15 Pulse 76 08/06/19 12:15 Resp 20 08/06/19 12:15 BP 109/61 08/06/19 12:15 Pulse Ox 100 08/06/19 12:15 1338 85 16 97.5 99% 104/55
[2019-08-06 13:53] VITALS: PULSE 78
== END 2019-08-06 14:25 | disposition home or self-care (01) ==
LOC: JD.SDS 12:06
PROVIDERS: ATTEND Surgery
DX: R07.89 Other chest pain (principal); K21.9 Gastro-esophageal reflux disease without esophagitis; F41.9 Anxiety disorder, unspecified; Z79.899 Other long term (current) drug therapy
CPT/HCPCS: 43239; 81025; 94640; J2001; J2250; J2704; J3010; J7120; 00731

== ENCOUNTER 2020-05-15 05:30 | Inpatient (IN) | payer MEDICAID ==
[2020-05-15] MEDS ORDERED: Nalbuphine 10 MG/1 ML Vial IVPUSH PRN (05:39)
[2020-05-15] MEDS ORDERED: Ondansetron 4 MG/2 ML SDV IVPUSH PRN (05:39)
[2020-05-15] MEDS ORDERED: Sodium Chloride 0.9% 10 ML Syringe FLUSH PRN (05:39)
[2020-05-15] MEDS ORDERED: Lactated Ringers 1,000 ML IV SCH (05:45)
[2020-05-15] MEDS ORDERED: Oxytocin/Lactated Ringers 10 UNIT/1,000 ML BAG IV SCH (05:45)
[2020-05-15] MEDS ORDERED: Oxytocin 10 Units/1 ML SDV ONE (05:50)
[2020-05-15] MEDS ORDERED: Acetaminophen 325 MG Tab PO PRN (08:20)
[2020-05-15] MEDS ORDERED: Benzocaine/Menthol 20%-0.5% Spray 56 GM Canister TOP PRN (08:20)
[2020-05-15] MEDS ORDERED: Docusate Sodium 100 MG Cap PO PRN (08:20)
[2020-05-15] MEDS ORDERED: Witch Hazel Medicated Pads 40/Jar TOP PRN (08:20)
--- NOTE | 2020-05-15 08:20 | PCM.DEL ---
L & D Note - General Info Date of Service: 05/15/20 - Delivery Note Labor: Spontaneous Delivery Outcome: Livebirth Delivery Method: Spontaneous Vaginal Delivery-Single Delivery Mode: Spontaneous Presentation: Right Occiput Anterior (PAT) Nuchal Cord: None Anesthesia Type: None Amniotic Fluid Description: Meconium Stained Episiotomy Type: None Laceration: None Placenta: Intact, Spontaneous Cord: 3 Vessels Estimated Blood Loss: 100 Resuscitation Needed: Yes [place]: Bulb Syringe, Stimulated, Warmed, Mingus Used, Warmer Used Delivery Comments (Free Text/Narrative):: Patient found to be complete and began pushing. With maternal pushing effort head delivered from an PAT presentation. No nuchal cord present. With gentle downward traction the shoulders and body delivered. placed on maternal abdomen. Cord clamped and cut. Cord blood obtained. Placenta al lowed time to separate and expelled intact. Inspection of the perineum showed no lacerations - General Info Date of Service: 05/15/20 - Problem List & Annotations (1) 40 weeks gestation of SNOMED Code(s): 61018216 Code(s): Z3A.40 - 40 WEEKS GESTATION OF Status: Acute Current Visit: Yes (2) Normal labor SNOMED Code(s): 52267554 Code(s): O80 - ENCOUNTER FOR FULL-TERM UNCOMPLICATED DELIVERY; Z37.9 - OUTCOME OF DELIVERY, UNSPECIFIED Status: Acute Current Visit: Yes (3) Vaginal delivery SNOMED Code(s): 374793436 Code(s): O80 - ENCOUNTER FOR FULL-TERM UNCOMPLICATED DELIVERY Status: Acute Current Visit: Yes - Problem List Review Problem List Initiated/Reviewed/Updated: Yes - My Orders Last 24 Hours: My Active Orders 05/15/20 05:39 Patient Status [ADT] Routine Activity as Tolerated [RC] PFP Communication Order [RC] ASDIRECTED Non Stress Test [RC] PER UNIT ROUTINE Notify Provider [RC] PFP Notify Provider [RC] PRN Vital Signs [RC] PER UNIT ROUTINE CBC W/O DIFF,HEMOGRAM [HEME] Stat RAPID PLASMA REAGIN,RPR [CHEM] Routine TYPE AND SCREEN [BBK] Stat Nalbuphine [Nubain] 10 mg IVPUSH Q2H PRN Ondansetron [Zofran] 4 mg IVPUSH Q4H PRN Sodium Chloride 0.9% [Saline Flush] 10 ml FLUSH ASDIRECTED PRN Electronic Heart Tones Ext w TOCO [WOMSER] Routine Electronic Heart Tones Internal [WOMSER] Per Unit Routine Peripheral IV Insertion Adult [OM.PC] Routine Resuscitation Status Routine 05/15/20 05:40 Heart Tones [RC] ASDIRECTED Peripheral IV Care [RC] . DIRECTED CORONAVIRUS COVID-19 ALESSANDRA [MOLEC] Stat 05/15/20 05:45 Lactated Ringers [Ringers, Lactated] 1,000 ml IV ASDIRECTED Oxytocin/Lactated Ringers [Pitocin in LR 10 Units/1,000 ML] 10 unit in 1,000 ml IV .CONTINUOUS 05/15/20 Breakfast Regular Diet [DIET] 05/15/20 08:16 Patient Status Manage Transfer [TRANSFER] Routine - Assessment Assessment:: PPD#0 - Plan Plan:: * Routine cares * Breast feeding * Discharge home in 1-2 days
--- NOTE | 2020-05-15 08:25 | PCM.HP.2 ---
H&P History of Present Illness - General Date of Service: 05/15/20 Admit Problem/Dx: Admission Diagnosis/Problem Admission Diagnosis/Problem Normal labor Source of Information: Patient History Limitations: Reports: No Limitations - History of Present Illness Initial Comments - Free Text/Narative: Sheri Coelho is a GBS - 33 year old female at 40-1 weeks gestation age ( STEPHON 05/14/20) by 10 week US and LMP who presents today for signs of labor. She reports contractions began at 1200 this morning. She reports some leaking of fluid but denies bleeding. She reports good movement. Other HPI/Comments: patient is a GBS - A + 34 year old female at 40-1 weeks gestation age (STEPHON 05/14/20) by 110 week US and LMP who presents today for evaluation of labor. Patient has received routine care and denies any complications during her . She was evaluated last week in [place] and treated for a UTI. She received the flu vaccine in December of 2019 and Tdap in March of 2020. OBGYN History 08/04/13: of live male infant weighing 8 lbs 7 ounces at 40 weeks gestational age named [place]ha 08/15/2007: of a live male infant weighing 7 lbs 2 ounces in [facility]; named [place] G3: current labs: Blood type: A+ Antibody screen: Negative Rubella status: immune Hepatitis B surface antigen: negative RPR: negative HIV: negative Gonorrhea: Negative Chlamydia: negative Anatomy US: 12/30/19; Normal growth, ZACHARY, placental position, anatomy One hour glucose tolerance test: 105 Second trimester hematocrit/hemoglobin: 38.3%/12.7 Platelets: 219,000 GBS status: negative - Related Data Allergies/Adverse Reactions: Allergies Allergy/AdvReac Type Severity Reaction Status Date / Time No Known Allergies Allergy Verified 08/05/19 16:17 Home Medications: Home Meds Albuterol [Proair HFA] 2 puff INH Q4H PRN 08/05/19 [History] Multivitamin [Poly-Vitamin] 1 tab PO DAILY 08/05/19 [History] Pantoprazole Sodium [Protonix] 40 mg PO DAILY 08/05/19 [History] Sucralfate 1 gm PO QID 08/05/19 [History] Past Medical History - Past Health History Medical/Surgical History: Denies Medical/Surgical History HEENT History: Reports: Other (See Below) Other HEENT History: MASTOID PAIN, RHINORRHEA, VISION CHANGES Cardiovascular History: Reports: Other (See Below) Other Cardiovascular History: RACING HEART Respiratory History: Reports: SOB, Other (See Below) Other Respiratory History: REACTIVE AIRWAY DYSFUNCTION Gastrointestinal History: Reports: GERD, Other (See Below) Other Gastrointestinal History: EPIGASTRIC PAIN, NAUSEA Genitourinary History: Reports: Other (See Below) Other Genitourinary History: DYSURIA, UTI, VAGINITIS 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) Other OB/BYN History: BREAST PAIN, INFERTILITY, LEFT BREAST MASS Musculoskeletal History: Reports: Other (See Below) Other Musculoskeletal History: IT BAND SYNDROME, CERVICAL MUSCLE STRAIN Neurological History: Reports: Headaches, Chronic, Other (See Below) Other Neuro History: RIGHT ARM PARESTHESIA, NECK PAIN, HEADACHES Psychiatric History: Reports: Anxiety Endocrine/Metabolic History: Reports: None Hematologic History: Reports: None Immunologic History: Reports: None Oncologic (Cancer) History: Reports: None Dermatologic History: Reports: Other (See Below) Other Dermatologic History: ACNE VULGARIS - Infectious Disease History Infectious Disease History: Reports: None - Past Surgical History Head Surgeries/Procedures: Reports: None Cardiovascular Surgical History: Reports: None Respiratory Surgical History: Reports: None Female Surgical History: Reports: None Male Surgical History: Reports: None Endocrine Surgical History: Reports: None Neurological Surgical History: Reports: None Musculoskeletal Surgical History: Reports: None Oncologic Surgical History: Reports: None Social & Family History - Caffeine Use Caffeine Use: Reports: None H&P Review of Systems - Review of Systems: Review Of Systems: See Below General: Denies: Fever Pulmonary: Denies: Shortness of Breath Cardiovascular: Denies: Chest Pain Genitourinary: Denies: Dysuria Exam - Exam Exam: See Below - Exam General: Alert, Oriented HEENT: Conjunctiva Clear, EOMI, Hearing Intact Lungs: Clear to Auscultation, Normal Respiratory Effort Cardiovascular: Regular Rate, Regular Rhythm GI/Abdominal Exam: Normal Bowel Sounds, Soft, Non-Tender Extremities: Normal Inspection, Non-Tender, Normal Capillary Refill Skin: Warm, Dry, Intact Neuro Extensive - Mental Status: Alert, Oriented x3 Psychiatric: Alert, Anxious - Problem List (1) 40 weeks gestation of SNOMED Code(s): 56546337 ICD Code: Z3A.40 - 40 WEEKS GESTATION OF Status: Acute Current Visit: Yes Problem List Initiated/Reviewed/Updated: Yes Orders Last 24hrs: Active Orders 24 hr Category Date Time Status Patient Status [ADT] Routine ADT 05/15/20 05:39 Active Activity as Tolerated [RC] PFP Care 05/15/20 05:39 Active Communication Order [RC] ASDIRECTED Care 05/15/20 05:39 Active Heart Tones [RC] ASDIRECTED Care 05/15/20 05:40 Active Non Stress Test [RC] PER UNIT ROUTINE Care 05/15/20 05:39 Active Notify Provider [RC] PFP Care 05/15/20 05:39 Active Notify Provider [RC] PRN Care 05/15/20 05:39 Active Peripheral IV Care [RC] . DIRECTED Care 05/15/20 05:40 Active Vital Signs [RC] PER UNIT ROUTINE Care 05/15/20 05:39 Active Regular Diet [DIET] Diet 05/15/20 Breakfast Active CBC W/O DIFF,HEMOGRAM [HEME] Stat Lab 05/15/20 05:39 Ordered CORONAVIRUS COVID-19 ALESSANDRA [MOLEC] Stat Lab 05/15/20 05:40 Ordered RAPID PLASMA REAGIN,RPR [CHEM] Routine Lab 05/15/20 05:39 Ordered TYPE AND SCREEN [BBK] Stat Lab 05/15/20 05:39 Ordered Lactated Ringers [Ringers, Lactated] 1,000 ml Med 05/15/20 05:45 Active IV ASDIRECTED Nalbuphine [Nubain] Med 05/15/20 05:39 Active 10 mg IVPUSH Q2H PRN Ondansetron [Zofran] Med 05/15/20 05:39 Active 4 mg IVPUSH Q4H PRN Oxytocin/Lactated Ringers [Pitocin in LR 10 Units/1,000 Med 05/15/20 05:45 Active ML] 10 unit in 1,000 ml IV .CONTINUOUS Sodium Chloride 0.9% [Saline Flush] Med 05/15/20 05:39 Active 10 ml FLUSH ASDIRECTED PRN Electronic Heart Tones Ext w TOCO [WOMSER] Oth 05/15/20 05:39 Ordered Routine Electronic Heart Tones Internal [WOMSER] Per Unit Oth 05/15/20 05:39 Ordered Routine Peripheral IV Insertion Adult [OM.PC] Routine Oth 05/15/20 05:39 Ordered Resuscitation Status Routine Resus Stat 05/15/20 05:39 Ordered Medication Orders Oxytocin/Lactated Ringer's (Pitocin In Lr 10 Units/1,000 Ml) 10 unit in 1,000 mls @ 500 mls/hr IV .CONTINUOUS PARUL Lactated Ringer's (Ringers, Lactated) 1,000 mls @ 100 mls/hr IV ASDIRECTED PARUL Nalbuphine HCl (Nalbuphine 10 Mg/1 Ml Vial) 10 mg IVPUSH Q2H PRN PRN Reason: Pain Ondansetron HCl (Ondansetron 4 Mg/2 Ml Sdv) 4 mg IVPUSH Q4H PRN PRN Reason: Nausea/Vomiting Sodium Chloride (Sodium Chloride 0.9% 10 Ml Syringe) 10 ml FLUSH ASDIRECTED PRN PRN Reason: Keep Vein Open
--- NOTE | 2020-05-15 08:28 | PCM.LDHP ---
<Mata Alonzo - Last Filed: 05/15/20 08:37> L&D History of Present Illness - General Date of Service: 05/15/20 Admit Problem/Dx: Admission Diagnosis/Problem Admission Diagnosis/Problem Normal labor Source of Information: Patient History Limitations: Reports: No Limitations - History of Present Illness Introduction:: Sheri Coelho is a GBS - 33 year old female at 40-1 weeks gestation age (STEPHON 05/14/20) by 10 week US and LMP who presents today for signs of labor. She reports contractions began at 1200 this morning and have been increasing in strength. She reports some leaking of fluid but denies bleeding. She reports good movement. She is requesting an epidural and is visibly uncomfortable. Present Illness Comments:: patient is a GBS - A + 34 year old female at 40-1 weeks gestation age (STEPHON 05/14/20) by 110 week US and LMP who presents today for evaluation of labor. Patient has received routine care and denies any complications during her . She was evaluated last week in [place] and treated for a UTI. She received the flu vaccine in December of 2019 and Tdap in March. OBGYN History 08/04/13: of live male infant weighing 8 lbs 7 ounces at 40 weeks gestational age named [place] 08/15/2007: of a live male weighing 7 lbs 2 ounces in [facility]; named [place] G3: current labs: Blood type: A+ Antibody screen: Negative Rubella status: immune Hepatitis B surface antigen: negative RPR: negative HIV: negative Gonorrhea: Negative Chlamydia: negative Anatomy US: 12/30/19; Normal growth, ZACHARY, placental position, anatomy One hour glucose tolerance test: 105 Second trimester hematocrit/hemoglobin: 38.3%/12.7 Platelets: 219,000 GBS status: negative - Related Data Allergies/Adverse Reactions: Allergies Allergy/AdvReac Type Severity Reaction Status Date / Time No Known Allergies Allergy Verified 08/05/19 16:17 Home Medications: Home Meds Albuterol [Proair HFA] 2 puff INH Q4H PRN 08/05/19 [History] Multivitamin [Poly-Vitamin] 1 tab PO DAILY 08/05/19 [History] Pantoprazole Sodium [Protonix] 40 mg PO DAILY 08/05/19 [History] Sucralfate 1 gm PO QID 08/05/19 [History] Past Medical History - Past Health History Medical/Surgical History: Denies Medical/Surgical History HEENT History: Reports: Other (See Below) Other HEENT History: MASTOID PAIN, RHINORRHEA, VISION CHANGES Cardiovascular History: Reports: Other (See Below) Other Cardiovascular History: RACING HEART Respiratory History: Reports: SOB, Other (See Below) Other Respiratory History: REACTIVE AIRWAY DYSFUNCTION Gastrointestinal History: Reports: GERD, Other (See Below) Other Gastrointestinal History: EPIGASTRIC PAIN, NAUSEA Genitourinary History: Reports: Other (See Below) Other Genitourinary History: DYSURIA, UTI, VAGINITIS 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) Other OB/BYN History: BREAST PAIN, INFERTILITY, LEFT BREAST MASS Musculoskeletal History: Reports: Other (See Below) Other Musculoskeletal History: IT BAND SYNDROME, CERVICAL MUSCLE STRAIN Neurological History: Reports: Headaches, Chronic, Other (See Below) Other Neuro History: RIGHT ARM PARESTHESIA, NECK PAIN, HEADACHES Psychiatric History: Reports: Anxiety Endocrine/Metabolic History: Reports: None Hematologic History: Reports: None Immunologic History: Reports: None Oncologic (Cancer) History: Reports: None Dermatologic History: Reports: Other (See Below) Other Dermatologic History: ACNE VULGARIS - Infectious Disease History Infectious Disease History: Reports: None - Past Surgical History Head Surgeries/Procedures: Reports: None Cardiovascular Surgical History: Reports: None Respiratory Surgical History: Reports: None Female Surgical History: Reports: None Male Surgical History: Reports: None Endocrine Surgical History: Reports: None Neurological Surgical History: Reports: None Musculoskeletal Surgical History: Reports: None Oncologic Surgical History: Reports: None Social & Family History - Caffeine Use Caffeine Use: Reports: None H&P Review of Systems - Review of Systems: Review Of Systems: See Below General: Denies: Fever Pulmonary: Denies: Shortness of Breath Cardiovascular: Denies: Chest Pain Genitourinary: Denies: Dysuria L&D Exam - Exam Exam: See Below - OB Specific Contraction Intensity: Strong Movement: Active Heart Tones: Present - Delacruz Score Delacruz Score Dilation: > 5 cm - Exam General: Alert, Oriented HEENT: Conjunctiva Clear, EOMI Lungs: Clear to Auscultation, Normal Respiratory Effort Cardiovascular: Regular Rate, Regular Rhythm GI/Abdominal Exam: Normal Bowel Sounds Extremities: Normal Inspection, Non-Tender, Normal Capillary Refill Skin: Warm, Dry, Intact Psychiatric: Alert, Normal Affect, Anxious - Problem List (1) 40 weeks gestation of SNOMED Code(s): 10388013 ICD Code: Z3A.40 - 40 WEEKS GESTATION OF Status: Acute Current Visit: Yes Problem List Initiated/Reviewed/Updated: Yes Orders Last 24hrs: Active Orders 24 hr Category Date Time Status Activity as Tolerated [RC] PER UNIT ROUTINE Care 05/15/20 08:20 Active Activity as Tolerated [RC] PFP Care 05/15/20 05:39 Active Communication Order [RC] ASDIRECTED Care 05/15/20 05:39 Active Heart Tones [RC] ASDIRECTED Care 05/15/20 05:40 Active Non Stress Test [RC] PER UNIT ROUTINE Care 05/15/20 05:39 Active Notify Provider [RC] PFP Care 05/15/20 05:39 Active Notify Provider [RC] PRN Care 05/15/20 05:39 Active Peripheral IV Care [RC] . DIRECTED Care 05/15/20 05:40 Active Vital Signs [RC] ASDIRECTED Care 05/15/20 08:20 Active Vital Signs [RC] PER UNIT ROUTINE Care 05/15/20 05:39 Active Regular Diet [DIET] Diet 05/15/20 Breakfast Active CBC W/O DIFF,HEMOGRAM [HEME] Stat Lab 05/15/20 05:39 Ordered CORONAVIRUS COVID-19 ALESSANDRA [MOLEC] Stat Lab 05/15/20 05:40 Ordered RAPID PLASMA REAGIN,RPR [CHEM] Routine Lab 05/15/20 05:39 Ordered TYPE AND SCREEN [BBK] Stat Lab 05/15/20 05:39 Ordered Acetaminophen [TylenoL] Med 05/15/20 08:20 Active 650 mg PO Q4H PRN Benzocaine/Menthol [Dermoplast Pain Relief [place]] Med 05/15/20 08:20 Active See Dose Instructions TOP ASDIRECTED PRN Docusate Sodium [Colace] Med 05/15/20 08:20 Active 100 mg PO BID PRN Ibuprofen [Motrin] Med 05/15/20 08:20 Active 600 mg PO Q6H PRN witch Joycelyn [Tucks] Med 05/15/20 08:20 Active 1 pad TOP ASDIRECTED PRN Assess Lochia [WOMSER] Per Unit Routine Oth 05/15/20 08:20 Ordered Assess Uterine Involution [WOMSER] Per Unit Routine Oth 05/15/20 08:20 Ordered Breast Pump [WOMSER] Per Unit Routine Oth 05/15/20 08:20 Ordered Heat Therapy [OM.PC] PRN Oth 05/15/20 08:30 Ordered Heat Therapy [OM.PC] PRN Oth 05/16/20 08:30 Ordered Perineal Care [OM.PC] Per Unit Routine Oth 05/15/20 08:20 Ordered Peripheral IV Discontinue [OM.PC] Routine Oth 05/15/20 08:20 Ordered Sitz Bath [OM.PC] Per Unit Routine Ot 05/15/20 08:20 Ordered Resuscitation Status Routine Resus Stat 05/15/20 05:39 Ordered Medication Orders Acetaminophen (Acetaminophen 325 Mg Tab) 650 mg PO Q4H PRN PRN Reason: mild pain or fever Benzocaine/Menthol (Benzocaine/Menthol 20%-0.5% [place] 56 Gm Canister) 0 gm TOP ASDIRECTED PRN PRN Reason: Perineal Comfort Measure Docusate Sodium (Docusate Sodium 100 Mg Cap) 100 mg PO BID PRN PRN Reason: Constipation Ibuprofen (Ibuprofen 600 Mg Tab) 600 mg PO Q6H PRN PRN Reason: Mild pain or fever Witch Joycelyn (Witch Joycelyn Medicated Pads 40/Jar) 1 pad TOP ASDIRECTED PRN PRN Reason: Perineal Comfort Measure Assessment/Plan Comment:: Sheri Coelho is a GBS - 33 year old female at 40-1 weeks gestation age (STEPHON 05/14/20) by 10 week US and LMP who presents today for signs of labor. Contractions began at 1200 this am and initial check by L&D nursing staff was 8 cm. 1. Precipitous delivery expected, patient at 8 cm on presentation to L&D and in obvious discomfort. Requested an epidural multiple times but due to the expected time to delivery it is unlikely that the patient would have sufficient time for lab work and anesthesia evaluation. She voices understanding. 2. Continuous monitoring 3. GBS - 4. A+ with negative antibody screen 5. Rubella immune 6. Activity as tolerated 7. Small amounts of regular diet 8. Plans to breastfeed 9. Anticipate vaginal delivery unless otherwise indicated <Michelle Alexander - Last Filed: 05/15/20 14:53> L&D History of Present Illness - General Admit Problem/Dx: Admission Diagnosis/Problem Admission Diagnosis/Problem Normal labor - Patient Data Result Diagrams: 05/15/20 08:21 - Problem List (1) Normal labor SNOMED Code(s): 62112600 ICD Code: O80 - ENCOUNTER FOR FULL-TERM UNCOMPLICATED DELIVERY; Z37.9 - OUTCOME OF DELIVERY, UNSPECIFIED Status: Acute Current Visit: Yes (2) 40 weeks gestation of SNOMED Code(s): 11593144 ICD Code: Z3A.40 - 40 WEEKS GESTATION OF Status: Acute Current Visit: Yes Problem List Initiated/Reviewed/Updated: Yes Assessment/Plan Comment:: I agree with the above history and physical. presents at 40 1/7 wks in active labor with uncomplicated . SROM prior to admission. 8 cm on initial check. Anticipate . Michelle Alexander MD
[2020-05-15] MEDS: Ibuprofen 600 MG Tab PO PRN ×2 (09:30→21:14)
--- NOTE | 2020-05-16 07:15 | PCM.PNPP ---
- General Info Date of Service: 05/16/20 Functional Status: Reports: Pain Controlled, Tolerating Diet, Ambulating, Urinating - Review of Systems General: Reports: No Symptoms Pulmonary: Reports: No Symptoms Cardiovascular: Reports: No Symptoms Gastrointestinal: Reports: No Symptoms Genitourinary: Reports: No Symptoms Musculoskeletal: Reports: No Symptoms - Patient Data Vital Signs - Most Recent: Last Vital Signs Temp 36.4 C 05/16/20 05:54 Pulse 71 05/16/20 05:54 Resp 16 05/16/20 05:54 BP 111/43 L 05/16/20 05:54 Pulse Ox 98 05/16/20 05:54 Weight - Most Recent: 75.75 kg I&O - Last 24 Hours: Intake & Output 05/15/20 05/16/20 05/16/20 22:59 06:59 14:59 Intake Total 120 Balance 120 Lab Results - Last 24 Hours: Laboratory Results - last 24 hr 05/15/20 05/15/20 05/15/20 Range/Units 08:20 08:21 08:21 WBC 14.74 H (3.98-10.04) K/mm3 RBC 4.15 (3.98-5.22) M/mm3 Hgb 12.1 (11.2-15.7) gm/dl Hct 37.1 (34.1-44.9) % MCV 89.4 (79.4-94.8) fl MCH 29.2 (25.6-32.2) pg MCHC 32.6 (32.2-35.5) g/dl RDW Std Deviation 41.0 (36.4-46.3) fL Plt Count 201 (182-369) K/mm3 MPV 12.1 (9.4-12.3) fl RPR Non-reactive (NONREACTIVE) SARS-CoV-2 RNA (ALESSANDRA) Negative (NEGATIVE) Blood Type Gel Antibody Screen 05/15/20 Range/Units 08:21 WBC (3.98-10.04) K/mm3 RBC (3.98-5.22) M/mm3 Hgb (11.2-15.7) gm/dl Hct (34.1-44.9) % MCV (79.4-94.8) fl MCH (25.6-32.2) pg MCHC (32.2-35.5) g/dl RDW Std Deviation (36.4-46.3) fL Plt Count (182-369) K/mm3 MPV (9.4-12.3) fl RPR (NONREACTIVE) SARS-CoV-2 RNA (ALESSANDRA) (NEGATIVE) Blood Type A POSITIVE Gel Antibody Screen Negative Med Orders - Current: Current Medications Acetaminophen (Acetaminophen 325 Mg Tab) 650 mg PO Q4H PRN PRN Reason: mild pain or fever Benzocaine/Menthol (Benzocaine/Menthol 20%-0.5% [place] 56 Gm Canister) 0 gm TOP ASDIRECTED PRN PRN Reason: Perineal Comfort Measure Last Admin: 05/15/20 09:31 Dose: 1 container Documented by: Docusate Sodium (Docusate Sodium 100 Mg Cap) 100 mg PO BID PRN PRN Reason: Constipation Ibuprofen (Ibuprofen 600 Mg Tab) 600 mg PO Q6H PRN PRN Reason: Mild pain or fever Last Admin: 05/15/20 21:14 Dose: 600 mg Documented by: Andrea Hirsch (Andrea Hirsch Medicated Pads 40/Jar) 1 pad TOP ASDIRECTED PRN PRN Reason: Perineal Comfort Measure Last Admin: 05/15/20 09:32 Dose: 1 container Documented by: Discontinued Medications Oxytocin/Lactated Ringer's (Pitocin In Lr 10 Units/1,000 Ml) 10 unit in 1,000 mls @ 500 mls/hr IV .CONTINUOUS PARUL Last Admin: 05/15/20 06:36 Dose: 500 mls/hr Documented by: Lactated Ringer's (Ringers, Lactated) 1,000 mls @ 100 mls/hr IV ASDIRECTED PARUL Nalbuphine HCl (Nalbuphine 10 Mg/1 Ml Vial) 10 mg IVPUSH Q2H PRN PRN Reason: Pain Ondansetron HCl (Ondansetron 4 Mg/2 Ml Sdv) 4 mg IVPUSH Q4H PRN PRN Reason: Nausea/Vomiting Oxytocin (Oxytocin 10 Units/1 Ml Sdv) Confirm Administered Dose 10 unit .ROUTE .STK-MED ONE Stop: 05/15/20 05:51 Last Admin: 05/15/20 09:06 Dose: Not Given Documented by: Sodium Chloride (Sodium Chloride 0.9% 10 Ml Syringe) 10 ml FLUSH ASDIRECTED PRN PRN Reason: Keep Vein Open - Interaction Disposition, : Alexis in Room with Family Interaction: Holding Feeding: Breastfed Infant; Nursed Well Support Person: - Recovery Exam Fundal Tone: Firm Fundal Level: At Umbilicus Fundal Placement: Midline Lochia Amount: Small Lochia Color: Rubra/Red Perineum Description: Intact, Minimal Bruising/Swelling Episiotomy/Laceration: None Bladder Status: Voiding - Exam General: Alert, Oriented, Cooperative - Problem List & Annotations (1) 40 weeks gestation of SNOMED Code(s): 36444884 Code(s): Z3A.40 - 40 WEEKS GESTATION OF Status: Acute (2) Normal labor SNOMED Code(s): 11005145 Code(s): O80 - ENCOUNTER FOR FULL-TERM UNCOMPLICATED DELIVERY; Z37.9 - OUTCOME OF DELIVERY, UNSPECIFIED Status: Acute (3) Vaginal delivery SNOMED Code(s): 876389515 Code(s): O80 - ENCOUNTER FOR FULL-TERM UNCOMPLICATED DELIVERY Status: Acute - Problem List Review Problem List Initiated/Reviewed/Updated: Yes - My Orders Last 24 Hours: My Active Orders 05/15/20 Breakfast Regular Diet [DIET] 05/15/20 08:20 Acetaminophen [TylenoL] 650 mg PO Q4H PRN Benzocaine/Menthol [Dermoplast Pain Relief [place]] See Dose Instructions TOP ASDIRECTED PRN Docusate Sodium [Colace] 100 mg PO BID PRN Ibuprofen [Motrin] 600 mg PO Q6H PRN witch [place] [Tucks] 1 pad TOP ASDIRECTED PRN 05/15/20 08:20 Activity as Tolerated [RC] PER UNIT ROUTINE Vital Signs [RC] ,,, Assess Lochia [WOMSER] Per Unit Routine Assess Uterine Involution [WOMSER] Per Unit Routine Breast Pump [WOMSER] Per Unit Routine Perineal Care [OM.PC] Per Unit Routine Peripheral IV Discontinue [OM.PC] Routine Sitz Bath [OM.PC] Per Unit Routine 05/15/20 08:30 Heat Therapy [OM.PC] PRN 05/15/20 18:48 Admission Status [Patient Status] [ADT] Routine 05/16/20 07:15 Ready for Discharge [RC] PER UNIT ROUTINE 05/16/20 08:30 Heat Therapy [OM.GINNA] PRN - Assessment Assessment:: PPD#2 - Plan Plan:: * Routine cares * Breast feeding * Discharge home today
--- NOTE | 2020-05-16 07:15 | PCM.DCSUM1 ---
Discharge Summary - Discharge Data Discharge Date: 05/16/20 Discharge Disposition: Home, Self-Care 01 Condition: Good - Referral to Home Health Primary Care Physician: Keyon Cabrera MD - Discharge Diagnosis/Problem(s) (1) 40 weeks gestation of SNOMED Code(s): 33249159 ICD Code: Z3A.40 - 40 WEEKS GESTATION OF Status: Acute (2) Normal labor SNOMED Code(s): 76272213 ICD Code: O80 - ENCOUNTER FOR FULL-TERM UNCOMPLICATED DELIVERY; Z37.9 - OUTCOME OF DELIVERY, UNSPECIFIED Status: Acute (3) Vaginal delivery SNOMED Code(s): 758711907 ICD Code: O80 - ENCOUNTER FOR FULL-TERM UNCOMPLICATED DELIVERY Status: Acute - Patient Summary/Data Complications: None Consults: None Recommended Follow-up Testing/Procedures: Follow up in 3 weeks for check Hospital Course: 34 y/o at 40 1/7 wks presented in active labor/SROM. Progressed rapidly to complete and underwent an uncomplicated . See delivery note. did well and was discharged home on PPD#1 - Patient Instructions Diet: Regular Diet as Tolerated Activity: As Tolerated Activity, Other: Pelvic rest for 6 weeks Driving: May Drive Today Showering/Bathing: May Shower Showering/Bathing, Other: May bathe Notify Provider of: Fever, Increased Pain, Swelling and Redness, Drainage, Nausea and/or Vomiting - Discharge Plan *PRESCRIPTION DRUG MONITORING PROGRAM REVIEWED*: No *COPY OF PRESCRIPTION DRUG MONITORING REPORT IN PATIENT SEBAS: No Home Medications: Home Meds Albuterol [Proair HFA] 2 puff INH Q4H PRN 08/05/19 [History] Multivitamin [Poly-Vitamin] 1 tab PO DAILY 08/05/19 [History] Pantoprazole Sodium [Protonix] 40 mg PO DAILY 08/05/19 [History] Sucralfate 1 gm PO QID 08/05/19 [History] Acetaminophen [Tylenol] 650 mg PO Q4H PRN tablet 05/15/20 [Rx] Ibuprofen [Motrin] 600 mg PO Q6H PRN tablet 05/15/20 [Rx] Patient Handouts: Care After Vaginal Delivery Referrals: Keyon Cabrera MD [Primary Care Provider] - (3 weeks for check ) - Discharge Summary/Plan Comment DC Time >30 min.: No - Patient Data Vitals - Most Recent: Last Vital Signs Temp 36.4 C 05/16/20 05:54 Pulse 71 05/16/20 05:54 Resp 16 05/16/20 05:54 BP 111/43 L 05/16/20 05:54 Pulse Ox 98 05/16/20 05:54 Weight - Most Recent: 75.75 kg I&O - Last 24 hours: Intake & Output 05/15/20 05/16/20 05/16/20 22:59 06:59 14:59 Intake Total 120 Balance 120 Lab Results - Last 24 hrs: Laboratory Results - last 24 hr 05/15/20 05/15/20 05/15/20 Range/Units 08:20 08:21 08:21 WBC 14.74 H (3.98-10.04) K/mm3 RBC 4.15 (3.98-5.22) M/mm3 Hgb 12.1 (11.2-15.7) gm/dl Hct 37.1 (34.1-44.9) % MCV 89.4 (79.4-94.8) fl MCH 29.2 (25.6-32.2) pg MCHC 32.6 (32.2-35.5) g/dl RDW Std Deviation 41.0 (36.4-46.3) fL Plt Count 201 (182-369) K/mm3 MPV 12.1 (9.4-12.3) fl RPR Non-reactive (NONREACTIVE) SARS-CoV-2 RNA (ALESSANDRA) Negative (NEGATIVE) Blood Type Gel Antibody Screen 05/15/20 Range/Units 08:21 WBC (3.98-10.04) K/mm3 RBC (3.98-5.22) M/mm3 Hgb (11.2-15.7) gm/dl Hct (34.1-44.9) % MCV (79.4-94.8) fl MCH (25.6-32.2) pg MCHC (32.2-35.5) g/dl RDW Std Deviation (36.4-46.3) fL Plt Count (182-369) K/mm3 MPV (9.4-12.3) fl RPR (NONREACTIVE) SARS-CoV-2 RNA (ALESSANDRA) (NEGATIVE) Blood Type A POSITIVE Gel Antibody Screen Negative Med Orders - Current: Current Medications Acetaminophen (Acetaminophen 325 Mg Tab) 650 mg PO Q4H PRN PRN Reason: mild pain or fever Benzocaine/Menthol (Benzocaine/Menthol 20%-0.5% [place] 56 Gm Canister) 0 gm TOP ASDIRECTED PRN PRN Reason: Perineal Comfort Measure Last Admin: 05/15/20 09:31 Dose: 1 container Documented by: Docusate Sodium (Docusate Sodium 100 Mg Cap) 100 mg PO BID PRN PRN Reason: Constipation Ibuprofen (Ibuprofen 600 Mg Tab) 600 mg PO Q6H PRN PRN Reason: Mild pain or fever Last Admin: 05/15/20 21:14 Dose: 600 mg Documented by: Andrea Hirsch (Andrea Hirsch Medicated Pads 40/Jar) 1 pad TOP ASDIRECTED PRN PRN Reason: Perineal Comfort Measure Last Admin: 05/15/20 09:32 Dose: 1 container Documented by: Discontinued Medications Oxytocin/Lactated Ringer's (Pitocin In Lr 10 Units/1,000 Ml) 10 unit in 1,000 mls @ 500 mls/hr IV .CONTINUOUS PARUL Last Admin: 05/15/20 06:36 Dose: 500 mls/hr Documented by: Lactated Ringer's (Ringers, Lactated) 1,000 mls @ 100 mls/hr IV ASDIRECTED PARUL Nalbuphine HCl (Nalbuphine 10 Mg/1 Ml Vial) 10 mg IVPUSH Q2H PRN PRN Reason: Pain Ondansetron HCl (Ondansetron 4 Mg/2 Ml Sdv) 4 mg IVPUSH Q4H PRN PRN Reason: Nausea/Vomiting Oxytocin (Oxytocin 10 Units/1 Ml Sdv) Confirm Administered Dose 10 unit .ROUTE .STK-MED ONE Stop: 05/15/20 05:51 Last Admin: 05/15/20 09:06 Dose: Not Given Documented by: Sodium Chloride (Sodium Chloride 0.9% 10 Ml Syringe) 10 ml FLUSH ASDIRECTED PRN PRN Reason: Keep Vein Open
[2020-05-16] MEDS: Ibuprofen 600 MG Tab PO PRN (08:17)
[2020-05-16 09:53] VITALS: BP 102/65; PULSE 72
== END 2020-05-16 10:44 | disposition home or self-care (01) | DRG 807 ==
LOC: JD.OBCHECK 05:30 → JD.OB 05:30 → JD.OBCHECK 05:42 → OBSVTOIN 06:34 → JD.MS 06:35 → JD.OB 14:20
PROVIDERS: ADMIT Obstetrics & Gynecology; ATTEND Obstetrics & Gynecology
PROC: 10E0XZZ Delivery of Products of Conception, External Approach (ICD-10-PCS; principal; 2020-05-15)
DX: O48.0 Post-term pregnancy (principal); Z37.0 Single live birth; Z3A.40 40 weeks gestation of pregnancy; Z79.899 Other long term (current) drug therapy; O77.0 Labor and delivery complicated by meconium in amniotic fluid; Z20.822 Contact with and (suspected) exposure to COVID-19
CPT/HCPCS: 36415; 59025; 59409; 85027; 86592; 86850; 86900; 86901; A9270-GY; J2590; U0002

== ENCOUNTER 2020-09-02 16:58 | Emergency (ER) | payer MEDICAID ==
[2020-09-02 17:25] VITALS: BP 98/43; PULSE 64
--- NOTE | 2020-09-02 19:36 | EDM.PDOC ---
ED HPI GENERAL MEDICAL PROBLEM - General Chief Complaint: Lower Extremity Injury/Pain Stated Complaint: L LEG PAIN Time Seen by Provider: 09/02/20 17:29 Source of Information: Reports: Patient, RN Notes Reviewed History Limitations: Reports: No Limitations - History of Present Illness INITIAL COMMENTS - FREE TEXT/NARRATIVE: Patient is a 34-year-old female presenting to the emergency department with complaints of left leg pain. She reports pain to her left posterior calf with shooting and burning pains throughout her extremity. This has been occurring for the last 2 weeks. She reports that she had been having pain in her left buttocks since she had her baby 3 to 4 months ago. Denies any known injury. She has not been using any [id number] pain medications. She is not currently on hormonal control. Denies any history of blood clots. Left Leg Pain Score (Numeric/FACES): 8 - Related Data Allergies Allergy/AdvReac Type Severity Reaction Status Date / Time No Known Allergies Allergy Verified 09/02/20 17:25 Home Meds: Home Meds Multivitamin [Poly-Vitamin] 1 tab PO DAILY 08/05/19 [History] Pantoprazole Sodium [Protonix] 40 mg PO DAILY 08/05/19 [History] Sucralfate 1 gm PO QID 08/05/19 [History] Diclofenac Sodium [Voltaren] 75 mg PO BIDMEALS 8 Days #16 tab.cr 09/02/20 [Rx] predniSONE [Prednisone] 20 mg PO ASDIRECTED #15 tablet 09/02/20 [Rx] Past Medical History - Past Health History Medical/Surgical History: Denies Medical/Surgical History HEENT History: Reports: Other (See Below) Other HEENT History: MASTOID PAIN, RHINORRHEA, VISION CHANGES Cardiovascular History: Reports: Other (See Below) Other Cardiovascular History: RACING HEART Respiratory History: Reports: SOB, Other (See Below) Other Respiratory History: REACTIVE AIRWAY DYSFUNCTION Gastrointestinal History: Reports: GERD, Other (See Below) Other Gastrointestinal History: EPIGASTRIC PAIN, NAUSEA Genitourinary History: Reports: Other (See Below) Other Genitourinary History: UTI TILE CONDUIT LAYER History: Reports: Other (See Below) Other TILE CONDUIT LAYER History: BREAST PAIN, INFERTILITY, LEFT BREAST MASS Musculoskeletal History: Reports: Other (See Below) Other Musculoskeletal History: IT BAND SYNDROME, CERVICAL MUSCLE STRAIN Neurological History: Reports: Headaches, Chronic, Other (See Below) Other Neuro History: RIGHT ARM PARESTHESIA, NECK PAIN, HEADACHES Psychiatric History: Reports: Anxiety Endocrine/Metabolic History: Reports: None Hematologic History: Reports: None Immunologic History: Reports: None Oncologic (Cancer) History: Reports: None Dermatologic History: Reports: Other (See Below) Other Dermatologic History: ACNE VULGARIS - Infectious Disease History Infectious Disease History: Reports: Novel Coronavirus - Past Surgical History Head Surgeries/Procedures: Reports: None Cardiovascular Surgical History: Reports: None Respiratory Surgical History: Reports: None Female Surgical History: Reports: None Endocrine Surgical History: Reports: None Neurological Surgical History: Reports: None Musculoskeletal Surgical History: Reports: None Oncologic Surgical History: Reports: None Social & Family History - Family History Family Medical History: No Pertinent Family History - Tobacco Use Tobacco Use Status *Q: Never Tobacco User Second Hand Smoke Exposure: No - Caffeine Use Caffeine Use: Reports: Soda - Recreational Drug Use Recreational Drug Use: No Review of Systems - Review of Systems Review Of Systems: Comprehensive ROS is negative, except as noted in HPI. ED EXAM, GENERAL - Physical Exam Exam: See Below General Appearance: Alert, WD/WN, No Apparent Distress Respiratory/Chest: No Respiratory Distress, Lungs Clear, Normal Breath Sounds, No Accessory Muscle Use, Chest Non-Tender Cardiovascular: Normal Peripheral Pulses, Regular Rate, Rhythm, No Edema, No Gallop, No JVD, No Murmur, No Rub Back Exam: Normal Inspection, Full Range of Motion, Other (Tenderness over the left SI joint) Extremities: Normal Inspection, Normal Range of Motion, Non-Tender, No Pedal Edema, Normal Capillary Refill, Other (No redness, warmth, or swelling of the left lower extremity) Neurological: Alert, Oriented, CN II-XII Intact, Normal Cognition, Normal Gait, Normal Reflexes, No Motor/Sensory Deficits Psychiatric: Normal Affect, Normal Mood Skin Exam: Warm, Dry, Intact, Normal Color, No Rash Course - Vital Signs Last Recorded V/S: Last Vital Signs Temp 96.9 F 09/02/20 17:24 Pulse 64 09/02/20 17:24 Resp 18 09/02/20 17:24 BP 98/43 L 09/02/20 17:24 Pulse Ox 100 09/02/20 17:24 - Orders/Labs/Meds Orders: Active Orders 24 hr Category Date Time Status Sacroiliac Joint Min 3V [CR] Stat Exams 09/02/20 18:58 Taken Labs: Laboratory Tests 09/02/20 09/02/20 09/02/20 Range/Units 17:45 17:45 17:45 WBC 6.12 (3.98-10.04) K/mm3 RBC 4.22 (3.98-5.22) M/mm3 Hgb 12.4 (11.2-15.7) gm/dl Hct 37.1 (34.1-44.9) % MCV 87.9 (79.4-94.8) fl MCH 29.4 (25.6-32.2) pg MCHC 33.4 (32.2-35.5) g/dl RDW Std Deviation 38.4 (36.4-46.3) fL Plt Count 195 (182-369) K/mm3 MPV 11.4 (9.4-12.3) fl Neut % (Auto) 64.7 (34.0-71.1) % Lymph % (Auto) 28.1 (19.3-51.7) % Power % (Auto) 5.1 (4.7-12.5) % Eos % (Auto) 1.5 (0.7-5.8) Baso % (Auto) 0.3 (0.1-1.2) % Neut # (Auto) 3.96 (1.56-6.13) K/mm3 Lymph # (Auto) 1.72 (1.18-3.74) K/mm3 Power # (Auto) 0.31 (0.24-0.36) K/mm3 Eos # (Auto) 0.09 (0.04-0.36) K/mm3 Baso # (Auto) 0.02 (0.01-0.08) K/mm3 D-Dimer, Quantitative 0.34 (0.19-0.50) mg/L Sodium 141 (136-145) mEq/L Potassium 4.2 (3.5-5.1) mEq/L Chloride 106 (98-107) mEq/L Carbon Dioxide 24 (21-32) mEq/L Anion Gap 15.2 H (5-15) BUN 14 (7-18) mg/dL Creatinine 0.8 (0.55-1.02) mg/dL Est Cr Clr Drug Dosing 83.51 mL/min Estimated GFR (MDRD) > 60 (>60) mL/min BUN/Creatinine Ratio 17.5 (14-18) Glucose 96 (70-99) mg/dL Calcium 8.4 L (8.5-10.1) mg/dL Total Bilirubin 0.3 (0.2-1.0) mg/dL AST 14 L (15-37) U/L ALT 18 (14-59) U/L Alkaline Phosphatase 64 (46-116) U/L Total Protein 7.3 (6.4-8.2) g/dl Albumin 3.7 (3.4-5.0) g/dl Globulin 3.6 gm/dL Albumin/Globulin Ratio 1.0 (1-2) - Re-Assessments/Exams Free Text/Narrative Re-Assessment/Exam: Patient is a 34-year-old female presenting to the emergency part with complaints of a 2-week history of left leg pain as well as intermittent SI joint pain on the left side since she gave 3 to 4 months ago. On exam, patient does have diffuse tenderness over the left SI joint. There is no redness, warmth, or swelling noted throughout her left lower extremity. Suspicion is for inflammation of the SI joint with sciatica ; ever, since she is 3 to 4 months , I am going to complete blood work including a D-dimer to rule out blood clot. 09/02/20 19:36 Hematology is grossly unremarkable. D-dimer is normal. I ordered x-ray of the SI joint to be completed. 09/02/20 19:50 Xray of the SI joints reviewed by myself and Dr. Hernadez shows no abnomalities. Pt will be started on prednisone and Voltaren. F/u in clinic as needed. Discharge instructions as documented. Departure - Departure Time of Disposition: 19:51 Disposition: Home, Self-Care 01 Condition: Good Clinical Impression: SI (sacroiliac) joint inflammation - Discharge Information *PRESCRIPTION DRUG MONITORING PROGRAM REVIEWED*: No *COPY OF PRESCRIPTION DRUG MONITORING REPORT IN PATIENT SEBAS: No Prescriptions: predniSONE [Prednisone] 20 mg PO ASDIRECTED #15 tablet Diclofenac Sodium [Voltaren] 75 mg PO BIDMEALS 8 Days #16 tab.cr Referrals: Cris Cabrera MD [Primary Care Provider] - Forms: ED Department Discharge Additional Instructions: You were seen in the emergency department today for pain to your left leg as well as your left buttocks area. Blood work was completed and found to be normal. You do not have a blood clot in your leg. X-ray of your SI joint was completed and was also normal. As we discussed, you are likely suffering from inflammation of your sacroiliac joint. You been started on prednisone and [place] savi (diclofenac) for treatment of this. Take these medications as prescribed. Ensure that you are taking the Voltaren with food. if you are still experiencing discomfort at conclusion of treatment, recommend follow-up with your primary care provider. Return to ER as needed. Sepsis Event Note (ED) - Evaluation Sepsis Screening Result: No Definite Risk - Focused Exam Vital Signs: Vital Signs Temp Pulse Resp BP Pulse Ox 09/02/20 17:24 96.9 F 64 18 98/43 L 100 - My Orders Last 24 Hours: My Active Orders 09/02/20 18:58 Sacroiliac Joint Min 3V [CR] Stat - Assessment/Plan Last 24 Hours: My Active Orders 09/02/20 18:58 Sacroiliac Joint Min 3V [CR] Stat
--- NOTE | 2020-09-04 11:54 | CR ---
Sacroiliac joints: 4 views of the sacroiliac joints were obtained. Comparison: No prior sacroiliac joint study is available. Sacroiliac joints appear normal in size. No abnormal osteosclerosis or osteolysis is seen. Sacral foramina are patent. No discrete fracture or other abnormality is appreciated. Impression: 1. No abnormality is identified on sacroiliac joints exam. Diagnostic code #1
== END 2020-09-02 20:00 | disposition home or self-care (01) ==
LOC: JD.ED 16:58
DX: M46.1 Sacroiliitis, not elsewhere classified (principal); Z86.16 Personal history of COVID-19
CPT/HCPCS: 36415; 72202; 72202-26; 80053; 85025; 85379; 99283; 99283-25

== ENCOUNTER 2021-04-21 19:02 | Emergency (ER) | payer MEDICAID ==
[2021-04-21] MEDS ORDERED: Sodium Chloride 0.9% 10 ML Syringe FLUSH PRN (19:48)
[2021-04-21] MEDS ORDERED: Sodium Chloride 0.9% 1,000 ML IV SCH (20:00)
[2021-04-21] MEDS ORDERED: Sodium Chloride 0.9% 10 ML SDV FLUSH ONE (20:32)
[2021-04-21] MEDS ORDERED: Iopamidol 612 MG/ML 100 ML Bottle IVPUSH ONE (20:32)
[2021-04-21] MEDS ORDERED: Magnesium Citrate Solution 296 ML Bottle PO ONE (21:01)
[2021-04-21 21:23] VITALS: BP 111/69; PULSE 91
== END 2021-04-21 21:21 | disposition home or self-care (01) ==
LOC: JD.ED 19:02
DX: K59.09 Other constipation (principal); Z79.899 Other long term (current) drug therapy
CPT/HCPCS: 36415; 74177; 80053; 81001; 82977; 83690; 85025; 86140; 99284; A9270; J7030; Q9967

== ENCOUNTER 2021-12-08 23:26 | Emergency (ER) | payer MEDICAID ==
[2021-12-09 01:36] LABS: ESTIMATED GFR 68 mL/min (>60)
== END 2021-12-09 02:15 | disposition home or self-care (01) ==
LOC: JD.ED 23:26
DX: M79.10 Myalgia, unspecified site (principal); F45.9 Somatoform disorder, unspecified; K21.9 Gastro-esophageal reflux disease without esophagitis; Z86.16 Personal history of COVID-19; Z79.899 Other long term (current) drug therapy
CPT/HCPCS: 36415; 80053; 82553; 85025; 99283

== ENCOUNTER 2022-03-15 19:14 | Emergency (ER) | payer MEDICAID ==
[2022-03-15] MEDS ORDERED: Sodium Chloride 0.9% 10 ML Syringe FLUSH PRN (19:31)
[2022-03-15] MEDS ORDERED: Aspirin 81 MG Tab.Chew PO ONE (19:31)
[2022-03-15 20:01] VITALS: BP 114/68; PULSE 72
[2022-03-15 20:26] LABS: ESTIMATED GFR 99 mL/min (>60)
== END 2022-03-15 21:00 | disposition home or self-care (01) ==
LOC: JD.ED 19:14
DX: R07.89 Other chest pain (principal); R00.2 Palpitations
CPT/HCPCS: 36415; 71045; 80053; 83735; 83880; 84443; 84484; 85025; 85379; 93005; 93225; 93226; 99285; A9270; J3490

== ENCOUNTER 2024-10-21 10:02 | Observation (INO) | payer BC ==
[2024-10-21] MEDS ORDERED: Ondansetron 4 MG/2 ML SDV IVPUSH PRN ×3 (10:41→22:35)
[2024-10-21 11:20] LABS: BASOPHILS ABSOLUTE AUTO 0.0 K/mm3 (0.0-0.2); BASOPHILS PERCENT AUTO 0.4 % (0.0-1.0); EOSINOPHILS ABSOLUTE AUTO 0.1 K/mm3 (0.0-0.4); EOSINOPHILS PERCENT AUTO 1.9 % (0.0-6.0); IMMATURE GRAN ABSOLUTE AUTO 0.03 K/mm3 (0.00-0.05); IMMATURE GRAN PERCENT AUTO 0.4 % (0.0-0.4); LYMPHOCYTES ABSOLUTE AUTO 1.7 K/mm3 (1.0-4.8); LYMPHOCYTES PERCENT AUTO 24.7 % (24.0-44.0); MEAN PLATELET VOLUME 10.7 fl (9.4-12.3); MONOCYTES ABSOLUTE AUTO 0.3 K/mm3 (0.0-0.8); MONOCYTES PERCENT AUTO 4.7 % (0.0-8.0); NEUTROPHILS ABSOLUTE AUTO 4.6 K/mm3 (1.8-7.7); NEUTROPHILS PERCENT AUTO 67.9 % (41.0-71.0); NRBC ABSOLUTE 0.00 (0.00-0.02); NRBC PERCENT 0.0 % (0.0-0.2); PLATELET COUNT,PLT 220 K/mm3 (150-400); RED BLOOD CELL COUNT 4.39 M/mm3 (4.10-5.30); WHITE BLOOD CELL COUNT,WBC 6.79 K/mm3 (3.9-11.3)
[2024-10-21 13:53] LABS: INR 0.99
[2024-10-21 13:55] LABS: PTT,PARTIAL THROMBOPLSTIN TIME 25.9 SECONDS (21.7-31.4)
[2024-10-21] MEDS ORDERED: Sodium Chloride 0.9% 10 ML Syringe FLUSH PRN ×2 (22:17→22:35)
[2024-10-21] MEDS ORDERED: Lactated Ringers 1,000 ML IV SCH ×2 (22:30→22:45)
[2024-10-21] MEDS ORDERED: fentaNYL 100 MCG/2 ML SDV ONE (22:35)
[2024-10-21] MEDS ORDERED: fentaNYL 100 MCG/2 ML SDV IVPUSH PRN (22:35)
[2024-10-21] MEDS ORDERED: propofoL 500 MG/50 ML 50 ML ONE (22:38)
[2024-10-21] MEDS ORDERED: Midazolam 1 MG/ML 2 ML SDV ONE (22:38)
[2024-10-21] MEDS ORDERED: Succinylcholine 200 MG/10 ML MDV ONE (22:39)
[2024-10-21] MEDS ORDERED: Dexamethasone 4 MG/ML 5 ML MDV ONE (22:39)
[2024-10-21] MEDS ORDERED: Esmolol 100 MG/10 ML SDV ONE (22:39)
[2024-10-22] MEDS ORDERED: Magnesium Hydroxide 400 MG/5 ML Susp 30 ML Cup PO PRN (01:09)
[2024-10-22] MEDS ORDERED: Benzocaine/Menthol 20%-0.5% Spray 78 GM Cannister TOP PRN (01:09)
[2024-10-22] MEDS ORDERED: Witch Hazel Medicated Pads 40/Jar TOP PRN (01:09)
[2024-10-22] MEDS: Lactated Ringers 1,000 ML IV ONE (02:20)
[2024-10-22] MEDS ORDERED: Sodium Chloride 0.9% 10 ML Syringe FLUSH SCH ×2 (09:00)
[2024-10-22 09:52] VITALS: BP 103/57; PULSE 77
== END 2024-10-22 10:35 | disposition home or self-care (01) ==
LOC: JD.OBCHECK 10:02 → JD.OB 10:05 → JD.OBCHECK 10:51 → JD.OB 10-22 01:16
PROVIDERS: ADMIT Family Medicine; ATTEND Family Medicine
DX: O02.1 Missed abortion (principal); O73.1 Retained portions of placenta and membranes, without hemorrhage; Z79.899 Other long term (current) drug therapy; Z3A.20 20 weeks gestation of pregnancy
CPT/HCPCS: 36415; 59821; 76815; 83036; 84443; 85025; 85384; 85610; 85613; 85730; 86147; 86850; 86900; 86901; A9270; G0378; J0330; J1100; J1805; J2003; J2210; J2250; J2704; J3010; J7120; 01965; 99140; J3490

== ENCOUNTER 2024-12-10 23:45 | Emergency (ER) | payer BC ==
[2024-12-11] MEDS: Sodium Chloride 0.9% 10 ML Syringe FLUSH PRN (00:38)
[2024-12-11 00:41] LABS: BASOPHILS ABSOLUTE AUTO 0.0 K/mm3 (0.0-0.2); BASOPHILS PERCENT AUTO 0.5 % (0.0-1.0); EOSINOPHILS ABSOLUTE AUTO 0.2 K/mm3 (0.0-0.4); EOSINOPHILS PERCENT AUTO 2.5 % (0.0-6.0); IMMATURE GRAN ABSOLUTE AUTO 0.01 K/mm3 (0.00-0.05); IMMATURE GRAN PERCENT AUTO 0.2 % (0.0-0.4); LYMPHOCYTES ABSOLUTE AUTO 1.7 K/mm3 (1.0-4.8); LYMPHOCYTES PERCENT AUTO 29.2 % (24.0-44.0); MEAN PLATELET VOLUME 11.1 fl (9.4-12.3); MONOCYTES ABSOLUTE AUTO 0.4 K/mm3 (0.0-0.8); MONOCYTES PERCENT AUTO 6.4 % (0.0-8.0); NEUTROPHILS ABSOLUTE AUTO 3.7 K/mm3 (1.8-7.7); NEUTROPHILS PERCENT AUTO 61.2 % (41.0-71.0); NRBC ABSOLUTE 0.00 (0.00-0.02); NRBC PERCENT 0.0 % (0.0-0.2); PLATELET COUNT,PLT 239 K/mm3 (150-400); RED BLOOD CELL COUNT 4.55 M/mm3 (4.10-5.30); WHITE BLOOD CELL COUNT,WBC 5.96 K/mm3 (3.9-11.3)
[2024-12-11] MEDS: Iopamidol 755 Mg/ML 100 ML Bottle IVPUSH ONE (01:04)
[2024-12-11 01:10] LABS: A/G RATIO 1.0 (1-2); ALANINE AMINOTRANSFERASE,ALT 25.0 U/L (14-59); ASPARTATE AMNIOTRANSFERASE,AST 20.0 U/L (15-37); BILIRUBIN TOTAL 0.2 mg/dL (0.2-1.0); BLOOD UREA NITROGEN,BUN 7.0 mg/dL (7-18); CARBON DIOXIDE,CO2 28.0 mEq/L (21-32); CHLORIDE,CL 106.0 mEq/L (98-107); CREATININE 0.7 mg/dL (0.55-1.02); EST CRCL DRUG DOSING (CG) 91.02 mL/min; ESTIMATED GFR 114.0 mL/min (>60); GLUCOSE RANDOM 108.0 mg/dL (70-99); POTASSIUM,K 3.5 mEq/L (3.5-5.1); PROTEIN TOTAL,TP 7.9 g/dl (6.4-8.2); SODIUM,NA 143.0 mEq/L (136-145); TROPONIN I HIGH SENSITIVITY 4.0 pg/mL (<=51)
[2024-12-11 02:42] VITALS: BP 99/55; PULSE 77
== END 2024-12-11 02:40 | disposition home or self-care (01) ==
LOC: JD.ED 23:45
DX: M54.6 Pain in thoracic spine (principal); Z86.16 Personal history of COVID-19; Z79.899 Other long term (current) drug therapy
CPT/HCPCS: 36415; 71275; 80053; 83735; 84484; 85025; 93005; 96374; 99285; Q9967; 93010; 99283; J1171